=== PATIENT | female | born 1985 | race Caucasian/White ===

== ENCOUNTER 2016-04-05 08:41 | Observation (INO) | payer OTHER ==
[2016-04-01 16:06] VITALS: BMI 27.0
--- NOTE | 2016-04-02 14:33 | HISTORY & PHYSICAL EXAMINATION ---
DATE OF ADMISSION: 04/05/2016 CHIEF COMPLAINT: Low back pain, lower extremity difficulty, paresthesias, fecal and bladder retention. HISTORY OF PRESENT ILLNESS: Cary is a delightful patient. We saw her in the office 31 of March. We scheduled her for urgent surgery, not truly emergency surgery for [facility] because of the bladder incontinence, the size of her disc herniation with cauda equina compression, almost complete block. She is not a candidate for physical therapy. Therapy would be contraindicated to strain her spine. In fact, she has been made worse with home exercises. PAST MEDICAL HISTORY: History of anxiety. PAST SURGICAL HISTORY: Tonsillectomy. ALLERGIES: Negative. CURRENT MEDICATIONS: Ativan, Zoloft, gabapentin, Vicodin. SOCIAL HISTORY: , moderately active. No alcohol, tobacco use. FAMILY HISTORY: Heart disease and she recently has run a half marathon, that was last fall, several months ago. REVIEW OF SYSTEMS: She admits to no fever, sweats, chills, no bowel and bladder issues. Denies chest pain, palpitations, angina. No asthma, wheezing. No sleep issues. She does have change in bowel habits, change in bladder habits with retention. OBJECTIVE: GENERAL: She is 5 feet 7 inches, 175, in significant distress here today. She actually has to get off her feet and lie supine. She is alert and oriented. CARDIAC: Normal S1, S2, no S3. LUNGS: Clear to auscultation. No rales, rhonchi or wheezing. ABDOMEN: Soft, nontender, bowel sounds present. SKIN: Intact. NEUROLOGIC: She has slight decrease in her knee jerk reflexes, slight loss of sensation, no upper motor neuron pathology. Images demonstrate a disc herniation at L3-L4. IMPRESSION: Massive disc herniation L3-L4 with urinary retention. DISPOSITION: Includes surgery coming up on the 05 of April, approximately 10:00 a.m. at [facility]. Lumbar spine discectomy doubtful but possible instrumentation at L3-L4.
[~2016-04-05] VITALS: Ht 170.2 cm; Wt 79.5 kg
[~2016-04-05 08:41] MED LIST: CEFAZOLIN 2000 MG/60 ML D5W 60 ML IV SCH; LACTATED RINGER'S 1000ML 1,000 ML IV SCH; LORA-741 PO; OXYC-57 PO; PRED10TA PO; SERT-234 PO; SERT25TA PO
[2016-04-05 09:17] VITALS: BP 138/79; PULSE 79; TEMP 37.2; O2SAT 95; Ht 170.2 cm; Wt 79.5 kg
[2016-04-05] MEDS ORDERED: PROPOFOL IV EMULSION 10 MG/ML 20 ML VIAL IV ONE ×2 (09:27→12:01)
[2016-04-05] MEDS ORDERED: GLYCOPYRROLATE INJ 0.2 MG/ML VIAL ONE (09:27)
[2016-04-05] MEDS ORDERED: ROCURONIUM BROMIDE 10 MG/ML 5 ML VIAL ONE (09:27)
[2016-04-05] MEDS ORDERED: ONDANSETRON INJ 2 MG/ML 2 ML VIAL ONE (09:27)
[2016-04-05] MEDS ORDERED: MIDAZOLAM HCL 1 MG/ML 2ML VIAL ONE (09:27)
[2016-04-05] MEDS ORDERED: LIDOCAINE HCL 2% 2 ML VIAL (20MG/ML) ONE (09:27)
[2016-04-05] MEDS ORDERED: FENTANYL CITRATE INJ 50 MCG/1 ML 2 ML VIAL ONE (09:27)
[2016-04-05] MEDS ORDERED: NEOSTIGMINE METHYLSULFATE 5 MG/5 ML SYR ONE (09:27)
[2016-04-05] MEDS ORDERED: DEXAMETHASONE SOD INJ 4 MG/ML VIAL ONE (09:27)
[2016-04-05 09:47] LABS: BASO % 0.3 %; BASO ABS # 0.02 K/uL (0-0.2); EOS % 0.5 %; HEMATOCRIT 39.4 % (37-47); IG% 0.2 %; LYMPH % 34.7 %; LYMPH ABS # 2.05 K/uL (1.2-3.4); MEAN CELL VOLUME 92.3 fL (80-100); MEAN CORPUSCULAR HEMOGLOBIN 33.3 pg (25-34); MEAN PLATELET VOLUME 9.3 fL (7.4-10.4); MONO % 7.1 %; NEUT % 57.2 %; PLATELET COUNT 183 K/uL (130-400); RED BLOOD COUNT 4.27 M/uL (4.2-5.4); WHITE BLOOD COUNT 5.91 K/uL (4.8-10.8)
[2016-04-05] MEDS ORDERED: SCOPOLAMINE 1.5 MG TDSY TD ONE (09:54)
[2016-04-05] MEDS ORDERED: LACTATED RINGER'S 1000ML 1,000 ML IV PRN (10:02)
[2016-04-05] MEDS ORDERED: BUPIVACAINE/EPINEPHRINE 0.5% MPF 1:200,000 30 ML VIAL ONE (10:10)
[2016-04-05] MEDS ORDERED: THROMBIN FOR SOLN 20000 UNIT KIT ONE (10:10)
[2016-04-05] MEDS ORDERED: GELATIN SPONGE SZ 100 ONE (10:10)
[2016-04-05] MEDS ORDERED: VANCOMYCIN HCL 1000MG/20ML VIAL ONE (10:11)
[2016-04-05] MEDS ORDERED: BACITRACIN 50000 UNIT VIAL ONE (10:11)
[2016-04-05] MEDS ORDERED: ONDANSETRON INJ 2 MG/ML 2 ML VIAL IV PRN ×2 (10:15→12:45)
[2016-04-05] MEDS ORDERED: DiphenhydrAMINE HCL 50 MG/ML VIAL IV PRN (10:15)
[2016-04-05] MEDS ORDERED: HYDROmorphone INJ 1 MG/ML SYR IV PRN ×2 (10:15→12:45)
[2016-04-05] MEDS ORDERED: METOCLOPRAMIDE HCL INJ 5 MG/ML 2 ML VIAL IV PRN ×2 (10:15→12:45)
--- NOTE | 2016-04-05 10:38 | History & Physical Bridge Note ---
H&P Re-Evaluation Bridge Note: I have examined the patient, reviewed the History & Physical and in the interval since the performance of the History & Physical I have noted the following changes of clinical significance: No changes noted
[2016-04-05 11:14] LABS: COMPLETE YES
[2016-04-05] MEDS ORDERED: EpHEDrine SULFATE 50MG/5ML SYR ONE (11:45)
--- NOTE | 2016-04-05 12:25 | DIAGNOSTIC IMAGING REPORT ---
INTRAOPERATIVE RADIOGRAPH CLINICAL HISTORY: L3-L4 discectomy. Fluoroscopy time: 9 seconds. FINDINGS: A single spot fluoroscopic image of the lumbar spine is presented. A surgical probe projects posteriorly at the level of the superior endplate of L4. IMPRESSION: Intraoperative images from L3 -L4 discectomy as above. Electronically signed by: Garo Beard M.D. 04/05/2016 12:23 PM Dictated Date/Time: 04/05/2016 12:23 PM
--- NOTE | 2016-04-05 12:42 | [facility] Post Operative Brief Note ---
Immediate Operative Summary Operative Date Apr 05, 2016. Pre-Operative Diagnosis Massive disc herniation L3-L4 Post-Operative Diagnosis Massive disc herniation L3-L4 Procedure(s) Performed L3-L4 Discectomy Surgeon Dr. Goncalves Truck Washer Surgeon(s) HOWARD Petit Estimated Blood Loss 40 ml Specimens none per surgeon Complication(s) None Disposition Recovery Room / PACU
[2016-04-05] MEDS ORDERED: PROMETHAZINE HCL INJ 12.5 MG in SODIUM CHLORIDE 0.9% 50ML 50 ML IV PRN (12:45)
[2016-04-05] MEDS ORDERED: LORAZEPAM INJ 1 MG in SYRINGE 0.5 ML IV PRN (12:45)
[2016-04-05] MEDS ORDERED: ACETAMINOPHEN 325 MG TAB PO PRN (12:45)
[2016-04-05] MEDS ORDERED: MAGNESIUM HYDROXIDE SUSP 30 ML UDC PO PRN (12:45)
[2016-04-05] MEDS ORDERED: OXYCODONE/ACETAMINOPHEN 5-325 TAB PO PRN ×2 (12:45)
[2016-04-05] MEDS ORDERED: LORAZEPAM 1 MG TAB PO PRN (12:45)
[2016-04-05] MEDS ORDERED: LORAZEPAM 0.5 MG TAB PO PRN (12:45)
[2016-04-05] MEDS ORDERED: HYDROmorphone INJ 2 MG/ML SYR/VIAL IV PRN (12:45)
[2016-04-05] MEDS: FENTANYL CITRATE INJ 50 MCG/1 ML 2 ML VIAL IV PRN ×2 (13:10→13:15)
--- NOTE | 2016-04-05 13:10 | Anesthesiology Progress Note ---
Anesthesia Post Op Note Date & Time Apr 05, 2016 at 13:09 Vital Signs Pain Intensity: 6 Vital Signs Past 12 Hours Date Time Temp Pulse Resp B/P Pulse Ox O2 Delivery O2 Flow Rate FiO2 04/05/16 12:55 82 16 143/67 100 Mask 10 04/05/16 12:46 37.3 89 14 148/85 100 Mask 10 04/05/16 09:17 37.2 79 20 138/79 95 Room Air Notes Mental Status: alert / awake / arousable, participated in evaluation Pt Amnestic to Procedure: Yes Nausea / Vomiting: adequately controlled Pain: adequately controlled Airway Patency, RR, SpO2: stable & adequate BP & HR: stable & adequate Hydration State: stable & adequate Anesthetic Complications: no major complications apparent Pt doing very well. She says she feels well, that her pain is tolerable and is improved from pre-op.
--- NOTE | 2016-04-05 13:35 | OPERATIVE REPORT ---
DATE OF OPERATION: 04/05/2016 PREOPERATIVE DIAGNOSIS: Disc herniation, lumbar spine. POSTOPERATIVE DIAGNOSIS: Same. PROCEDURES: Include lumbar spine discectomy, foraminotomy, partial facetectomy lumbar spine. SURGEON: Dr. Goncalves. REAL ESTATE LEGAL SECRETARY: Bert Austin PA-C. COMPLICATIONS: Zero. BLOOD LOSS: 40 mL. DESCRIPTION OF PROCEDURE: The patient was taken to the operating room and general intubated anesthetic provided to the patient. Gardner catheter administered and antibiotics administered as well. She was placed prone. She was scrubbed, prepped and draped sterile. We used C-arm guidance to come in at the L3-L4 interspace. We did a laminectomy, foraminotomy first. I got pressure off both nerves, meaning bilateral. I did partial facetectomies. I did not destabilize the spine. We carefully retracted the dura and nerve root over medial direction on both sides. I extracted the massive disc herniation, really from both sides. We cleaned out the interspace. The nerve roots were free of compression. The total discectomy, just taking out the disc material, took at least 10-20 minutes. We also found a few free fragments. I further assessed instability. I felt there was no gross instability. I thought a fusion technology was not indicated. We irrigated, closed over a Hemovac drain and vancomycin powder with #1 Vicryl suture, 2-0 ends and 3-0 nylon on the skin, sterile dressing applied. The patient returned to PACU stable. No apparent complications. I attest to the content of the Intraoperative Record and any orders documented therein. Any exceptio ns are noted below.
[2016-04-05] MEDS ORDERED: SODIUM CHLORIDE 0.9% 1000ML 1,000 ML IV SCH (13:45)
[2016-04-05 16:00] VITALS: BP 130/73; PULSE 63; TEMP 36.8; O2SAT 95
[2016-04-05] MEDS ORDERED: IV FLUIDS COMPLETED PRN (16:15)
[2016-04-05 16:30] VITALS: BP 118/69; PULSE 63; TEMP 36.8; O2SAT 97
[2016-04-05] MEDS: KETOROLAC TROMETHAMINE 30 MG/ML VIAL IV SCH ×2 (16:31→21:26)
[2016-04-05] MEDS: DEXAMETHASONE INJ 10 MG in SYRINGE 0 ML IV SCH (17:25)
[2016-04-05 17:30] VITALS: BP 112/73; PULSE 67; TEMP 36.7; O2SAT 98
[2016-04-05] MEDS: CEFAZOLIN IV 1,000 MG in DEXTROSE 5% 50ML 50 ML IV SCH (18:26)
[2016-04-05 18:28] VITALS: BP 120/67; PULSE 65; TEMP 36.3; O2SAT 100
[2016-04-05] MEDS ORDERED: NURSING VERBAL MED ORDER ONE (21:15)
[2016-04-06 00:45] VITALS: BP 100/64; PULSE 68; TEMP 36.6; O2SAT 98
[2016-04-06] MEDS: CEFAZOLIN IV 1,000 MG in DEXTROSE 5% 50ML 50 ML IV SCH ×2 (03:16→10:57)
[2016-04-06] MEDS: DEXAMETHASONE INJ 10 MG in SYRINGE 0 ML IV SCH ×2 (03:16→09:44)
[2016-04-06] MEDS: KETOROLAC TROMETHAMINE 30 MG/ML VIAL IV SCH ×2 (03:17→09:43)
[2016-04-06 04:09] VITALS: BP 98/59; PULSE 55; TEMP 36.7; O2SAT 94
[2016-04-06] MEDS ORDERED: BISACODYL 5 MG TABEC PO PRN (06:00)
[2016-04-06] MEDS ORDERED: BISACODYL 10 MG SUPP PR PRN (06:00)
--- NOTE | 2016-04-06 07:37 | Discharge Instructions ---
Discharge Instructions Admission Reason for Admission: L4-L5 Lumbar Disc Herniation Discharge Discharge Diagnosis / Problem: disc herniation Discharge Goals Goal(s): Improve function Activity Recommendations Activity Limitations: as noted below Lifting Limitations: until after follow-up appointment Exercise/Sports Limitations: until after follow-up appointment May Resume Sexual Activity: after follow-up appointment Shower/Bathe: keep incision dry Driving or Machine Use: home ,rest, walk ,recover . Instructions / Follow-Up Instructions / Follow-Up MEDICATIONS: Please take your prescriptions as instructed at your pre-op appointment. SPECIAL CARE: The following information is intended to answer some of the common questions and concerns regarding your surgery. Each patient is an individual and receives individual counselling throughout the course of treatment, from diagnosis to surgery all the way through recovery. What follows is not an exhaustive list, but should be a useful guide to some of the common questions and concerns patients have regarding their surgeries. These are not provided to keep you from calling us; rather, they give you something accurate and concrete to reference as you recover from your procedure. If you need us, we are available to you. As always, if you are not sure about something, call us at [phone]. MEDICAL EMERGENCIES: For these conditions, call 911 or go to your local hospital-based Emergency Department - not [facility] or equivalent. * Paralysis * Severe chest pain or difficulty breathing * Swelling or redness of either leg Spine procedures can be rather complex and though complications are rare, they do occur. In such cases, effective advice regarding emergency situations cannot always be addressed over the telephone. You may be referred to the emergency department for more effective management of your problem. Activity Limitations: It is important to give your body time to heal, so please limit your activities : * In general, don't do anything that moves your spine too much. You should avoid contact sports, twisting or heavy lifting while you recover. * 5-10 pounds is all you should attempt to lift. * You should not plan on driving for approximately 3 weeks and you should avoid traveling more than 30-45 minutes at a time. Longer trips should be broken down with walking breaks spaced appropriately. * Physical therapy is not usually required. * Walking and good posture practices will help you recover and regain your function. * Avoid straining or sudden changes in position. * In general, the goal is to take it easy and recover. Don't cause any new problems. Just relax. Showers: * Do not take a bath, use a Jacuzzi or hot tub or otherwise submerge your incision. * It is usually safe to take a shower 4-5 days after your surgery. * Your incision does not require any special creams or ointments. * Simply clean it with soap and water, dry and re-dress with a clean bandage afterwards. Incision: * Keep incision clean, dry and protected until your first follow-up appointment. * Some amount of drainage and redness is normal. Any drainage should be fairly clear and not have a foul odor. * If you feel anything is wrong or you have excessive drainage, please call us. * Your stitches and diamond will be removed 10-14 days after your surgery. At the time of your first post-op visit. * Neck surgeries are typically closed with a suture underneath the skin. The steri-strips over the incision should be maintained until we see you in the office. Bracing: * You may be provided with a back or neck brace to encourage good posture and prevent injury. It will remind you not to do too much as you heal and will alert others to the fact that you have had a surgery. * Back braces may be removed for showers and when you are resting at home. They must be worn when you are walking around for any period of time or for travel. * For neck surgery, you will likely be provided with two cervical collars. The soft collar ([place] or foam rubber) is worn most commonly throughout the day and while sleeping. The plastic collar (provided at the hospital) is for showering/bathing. * Except while eating, collars should remain in place. More specifically, bracing is provided for a purpose and should be worn. * Please obtain your brace or collars prior to your operation and bring them to the hospital with you on the day of surgery. * You should also bring your collars to your post-op appointment with Dr. Goncalves. You should always take good care of your body and practice healthy habits, especially following surgery. You should: * Follow your doctor's treatment plan * Sit and stand properly with good posture (ears over shoulders, shoulders over hips) Don't slouch * Learn to lift correctly * Exercise regularly (low-impact aerobic exercise is especially good, but check with your doctor first) * Generally, be up and walking for 5-10 minutes at a time at least 3-4 times per day from the day you get home * Increasing walking to tolerance until you can walk for 20-30 minutes at a time * Attain and maintain a healthy body weight * Eat healthy foods ( a well-balanced, low-fat diet rich in fruits and vegetables) and get enough calcium * Avoid excessive use of alcohol When to call our office - If you notice any of the following: * Increased pain not relieve by pain medicine * Fevers greater then 100 degrees F, chills or flu symptoms * Increased redness around incision * Drainage from the incision that is not clear * Any foul smelling drainage * Swelling or fluid collection beneath the skin Miscellaneous: * In the hospital, you may be given a walker or cane for support while walking. These are temporary needs and are intended to prevent injuries due to falls. You may discontinue them when you feel strong and steady enough on your feet. * Sleep in a comfortable position. We find that many patients find a lounge chair or recliner with several pillows to be beneficial in the early post-operative period. * The support stockings should be used for 7-10 days and may be discontinued when you are back to walking more and conducting usual household activities. No problem is insignificant. We are here to help you and get you well. Contact us at [phone]. Definitions: Foraminotomy: If part of the disc or a bone spur (osteophyte) is pressing on a nerve as it leaves the vertebra (through an exit called the foramen), a foraminotomy may be done. Otomy means "to make an opening." A foraminotomy is making the opening of the foramen larger, so the nerve can exit without being compressed. Laminotomy: Similar to the foraminotomy, a laminotomy makes a larger opening, this time in your bony plate protecting your spinal canal and spinal cord (the lamina). The lamina may be pressing on your nerve, so the surgeon may make more room for the nerves using a laminotomy. Laminectomy: Sometimes, a laminotomy is not sufficient. The surgeon may need to remove all or part of the lamina. This procedure is called a laminectomy. This can often be done at many levels without any harmful effects. Current Hospital Diet Patient's current hospital diet: Regular Diet Discharge Diet Recommended Diet: Regular Diet Fluid Restriction: None Procedures Procedures Performed: L3-L4 Discectomy Pending Studies Studies pending at discharge: no Medical Emergencies . Who to Call and When: Medical Emergencies: If at any time you feel your situation is an emergency, please call 911 immediately. . Non-Emergent Contact Non-Emergency issues call your: Surgeon Call Non-Emergent contact if: you have any medication questions . "Provider Documentation" section prepared by Tip Goncalves. VTE Core Measure Inpt VTE Proph given/why not?: Treatment not indicated
[2016-04-06 08:03] VITALS: BP 99/61; PULSE 56; TEMP 36.8; O2SAT 98
[2016-04-06] MEDS ORDERED: POLYETHYLENE (MIRALAX) 17 GM PACK PO SCH (09:00)
[2016-04-06] MEDS ORDERED: SERTRALINE HCL 100 MG TAB PO SCH (09:00)
[2016-04-06] MEDS ORDERED: SERTRALINE HCL 50 MG TAB PO SCH (09:00)
[2016-04-06 10:57] VITALS: BP 99/61; PULSE 56; TEMP 36.8; O2SAT 98
[2016-04-06 11:42] VITALS: BP 106/64; PULSE 67; TEMP 36.5; O2SAT 96
--- NOTE | 2016-04-09 11:41 | DISCHARGE SUMMARY ---
SUBJECTIVE: Moderate complaints of pain but no chest pain or shortness of breath. OBJECTIVE: Vital signs stable. Neurologically intact. ASSESSMENT: Status post discectomy lumbar spine. DISPOSITION: Dressing changed today. She will be discharged home on the . Instructions, precautions, education. Follow up in the office in 12 days.
== END 2016-04-06 13:48 | disposition home or self-care (01) ==
LOC: ENRESERVDT → ENRESERVTM → C.ACU 08:41 → C.3E 12:46
PROVIDERS: ADMIT Orthopaedic Surgery Orthopaedic Surgery of the Spine; ATTEND Orthopaedic Surgery Orthopaedic Surgery of the Spine
DX: M51.26 Other intervertebral disc displacement, lumbar region (principal); R33.9 Retention of urine, unspecified; Z82.49 Family history of ischemic heart disease and other diseases of the circulatory system

== ENCOUNTER → 2017-09-09 | Outpatient (CLI) | payer BC, OTHER ==
[~2017-09-09] MED LIST changes: -CEFAZOLIN 2000 MG/60 ML D5W 60 ML IV SCH; -LACTATED RINGER'S 1000ML 1,000 ML IV SCH
== END | disposition home or self-care (01) ==
LOC: C.LAB1850 15:14
PROVIDERS: ATTEND Obstetrics & Gynecology
DX: Z34.02 Encounter for supervision of normal first pregnancy, second trimester (principal)

== ENCOUNTER 2018-02-12 01:10 | Inpatient (IN) ==
[2018-02-12] MEDS ORDERED: LACTATED RINGER'S 1,000 ML IV PRN ×2 (01:40→01:44)
[2018-02-12] MEDS ORDERED: OXYTOCIN 30 UNITS/500 ML BAG IV PRN ×2 (01:40→01:44)
--- NOTE | 2018-02-12 01:41 | History & Physical Report ---
Date of Service February 12, 2018 Assessment & Plan (1) PROM (premature rupture of membranes): PROM with onset of cramps that have not significantly changed her cervix yet. Cervix is ripe and will plan to start pitocin as toco is active Q2-5 min. GBS neg. Rh pos. Patient noted to have h/o lumbar diskectomy. No hardware or fusion. She states Dr. Aparicio did call anesthesia from the OB office, and they felt that this patient receiving an epidural would be fine as there's no hardware implanted, however patient did not choose to get the recommended formal anesthesia consult because she is planning not to request epidural. Discussed available options including IV stadol in first half of labor, but need to avoid IV sedation in active / later labor to avoid respiratory suppression. Positioning and breathing techniques are her plan for later labor at this time. History of Present Illness Chief Complaint: 32yo at 39 1/7 with c/o LOF at 2300 followed by onset of cramps. +FM, no VB. Fluid is clear. c/b umbilical cord varix with reassuring testing. Primary Care Provider: Paulette Arroyo PA-C Allergies Allergy/AdvReac Type Severity Reaction Status Date / Time No Known Drug Allergies Allergy Mild . Verified 04/05/16 09:13 Home Medications Home Medications Medication Instructions Recorded Confirmed Type LORAZEPAM (ATIVAN) 0.5 mg PO Q6H PRN #0 tab 04/01/16 History OXYCODONE/ACETAMINOPHEN 5MG/325MG 1 - 2 tabs PO Q4H PRN #0 tab 04/01/16 History (PERCOCET 5MG/325MG) Prednisone Tab (PREDNISONE) 10 mg PO UD #0 tab 04/01/16 History Sertraline (Zoloft) 25 mg PO QAM #0 tab 04/01/16 History Sertraline (Zoloft) 150 mg PO QAM #0 tab 04/01/16 History Physical Exam 2 Physical Exam: Gen: NAD Lungs: no resp distress Abd: Gravid, NT Cvx: 2/50/-2/soft/ant, EFW 7.5lb LOF clear +nitrazine
[2018-02-12 02:14] LABS: Hemoglobin 11.1 g/dL (12.0-16.0); Mean Corpuscular Volume 93.8 fL (80-100); Mean Platelet Volume 10.8 fL (7.4-10.4); Platelet Count 149 K/uL (130-400); RDW Coefficient of Variation 12.5 % (11.5-14.5); RDW Standard Deviation 42.3 fL (36.4-46.3); Red Blood Count 3.52 M/uL (4.2-5.4)
[2018-02-12 02:23] LABS: Mean Corpuscular Hgb Conc 33.6 g/dL (32-36)
[2018-02-12] MEDS ORDERED: INFLUENZA ADMINISTRATION CHARGE ONE (03:30)
[2018-02-12] MEDS ORDERED: INFLUENZA VIRUS QUAD VACCINE 0.5 ML SYR IM ONE (03:30)
[2018-02-12] MEDS: LACTATED RINGER'S 1,000 ML IV SCH ×4 (03:45→22:03)
[2018-02-12] MEDS ORDERED: CALCIUM CARBONATE 500 MG CHEWABLE TAB PO PRN (04:27)
--- NOTE | 2018-02-12 07:13 | Labor Progress Brief Note ---
Date of Service February 12, 2018 Subjective Tolerating ctx well with pit @ 5. Assessment & Plan (1) PROM (premature rupture of membranes): IOL for PROM. Cont pitocin. Epidural on request. PROM onset of labor timing: onset of labor within 24 hours of rupture PROM gestational age: full term Qualified Code(s): O42.02 - Full-term premature rupture of membranes, onset of labor within 24 hours of rupture Physical Exam 2 Vital Signs (Past 24 Hours): Last Vital Signs Temp 36.9 C 02/12/18 06:00 Pulse 74 02/12/18 07:06 Resp 20 02/12/18 03:40 BP 113/55 L 02/12/18 07:06 Physical Exam: Cvx 3/75/-3 LOF clear continues FHT Cat 1 [place] poorly traced but has been Q2-3min.
[2018-02-12] MEDS: SERTRALINE HCL 50 MG TABLET PO SCH (09:11)
[2018-02-12] MEDS: SERTRALINE HCL 100 MG TABLET PO SCH (09:11)
--- NOTE | 2018-02-12 11:31 | Labor Progress Brief Note ---
Date of Service February 12, 2018 Subjective Comfortable with epidural. Assessment & Plan (1) PROM (premature rupture of membranes): Continue increasing pitocin, currently at 13 and ctx pattern not yet ideal , with no new cervical progress. Once at Q2min reliably, if still no cervical change, will need to use IUPC. PROM onset of labor timing: onset of labor within 24 hours of rupture PROM gestational age: full term Qualified Code(s): O42.02 - Full-term premature rupture of membranes, onset of labor within 24 hours of rupture Physical Exam 2 Vital Signs (Past 24 Hours): Last Vital Signs Temp 37.0 C 02/12/18 11:06 Pulse 67 02/12/18 11:06 Resp 20 02/12/18 11:06 BP 121/68 02/12/18 11:06 Physical Exam: Cervix unchanged, still 3cm. FHT Cat 1. [place] Q3-6min.
[2018-02-12] MEDS ORDERED: BUTORPHANOL TARTRATE 1 MG/ML VIAL IV ONE (13:01)
[2018-02-12] MEDS ORDERED: BUPIVACAINE 0.25% 30 ML VIAL ONE (17:27)
[2018-02-12] MEDS ORDERED: fentaNYL citrate 100 MCG/2 ML VIAL ONE (17:28)
[2018-02-12] MEDS ORDERED: fentaNYL 2MCG/ML ROPIV 1.25MG/ML 100 ML BAG EPI ONE (17:28)
[2018-02-12] MEDS ORDERED: ePHEDrine sulfate 50 MG/ML AMP ONE (17:28)
--- NOTE | 2018-02-12 17:50 | Anesthesiology Consultation ---
Date of Service February 12, 2018 Assessment & Plan (1) Encounter for pre-operative examination: Chart Review Chart Review: Acceptable Risk for Labor Epidural History Height/Weight Height: 5 ft 7 in Weight: 104.326 kg Allergies Allergy/AdvReac Type Severity Reaction Status Date / Time No Known Drug Allergies Allergy Mild . Verified 04/05/16 09:13 Medications Home Medications Medication Instructions Recorded Confirmed Last Taken Vitamin 02/12/18 Unknown Zoloft 25 mg PO DAILY 02/12/18 02/12/18 02/11/18 08:00 Active Medications Generic Name Dose Route Start Last Admin Trade Name Freq PRN Reason Stop Dose Admin Calcium Carbonate 500 mg 02/12/18 04:27 02/12/18 05:11 Tums PO 03/14/18 04:26 500 mg Q4 PRN Administration Indigestion Lactated Ringer's 1,000 mls @ 999 mls/hr 02/12/18 01:40 02/12/18 18:51 Lr IV 03/14/18 01:39 125 mls/hr .Q1H1M PRN Titration (Pre-Anesthesia) Lactated Ringer's 1,000 mls @ 125 mls/hr 02/12/18 01:45 02/12/18 18:30 Lr IV 02/14/18 01:44 Infused .Q8H WENDY Infusion Oxytocin 30 units in 500 mls @ 20 mls/hr 02/12/18 01:44 02/12/18 15:11 Pitocin IV 02/14/18 01:43 1.2 units/hr .Q24H PRN 20 mls/hr Labor Induction/Augmentation Titration Protocol 1.2 UNITS/HR Sertraline HCl 100 mg 02/12/18 09:00 02/12/18 09:11 Zoloft PO 03/14/18 08:59 100 mg QAM WENDY Administration Sertraline HCl 75 mg 02/12/18 09:00 02/12/18 09:11 Zoloft PO 03/14/18 08:59 75 mg QAM WENDY Administration Past Medical History Medical History History of wisdom tooth extraction Past Surgical History Surgical History Hx of tonsillectomy Previous back surgery Social History Smoking Status: Never smoker Do You Dip or Chew Tobacco: No Hx Alcohol Use: No Hx Substance Use: No substance use type: does not use Physical Exam Vital Signs Last Vital Signs Temp 36.9 C 02/12/18 15:00 Pulse 77 02/12/18 16:02 Resp 22 02/12/18 16:02 BP 127/74 02/12/18 16:02 Testing Laboratory Results 02/12/18 01:51
[2018-02-12] MEDS ORDERED: PHENYLEPHRINE 100MCG/ML 5ML SYR ONE (19:02)
--- NOTE | 2018-02-13 00:51 | Labor Progress Brief Note ---
Date of Service February 13, 2018 Subjective Comfortable with epidural. Assessment & Plan (1) PROM (premature rupture of membranes): Continue increasing pitocin. Had to stop pitocin earlier following epidural, with maternal hypotension managed using significant ephedrine doses, which resulted in a tachycardia and therefore discontinuation of pitocin. Once FHT resumed Cat 1 status, pitocin was able to be restarted and dose has been climbing steadily per protocol. It is currently at 13 and slow cervical progress has now resumed. I note that previously pitocin was at 20 when cervical progress was occurring. Fluid remains clear and patient is afebrile. PROM onset of labor timing: onset of labor within 24 hours of rupture PROM gestational age: full term Qualified Code(s): O42.02 - Full-term premature rupture of membranes, onset of labor within 24 hours of rupture Physical Exam 2 Vital Signs (Past 24 Hours): Last Vital Signs Temp 37.0 C 02/12/18 23:00 Pulse 96 H 02/13/18 00:42 Resp 18 02/13/18 00:30 BP 109/56 L 02/13/18 00:42 Pulse Ox 96 02/13/18 00:40 Physical Exam: 6/90/0 LOF clear Afebrile FHT 160 mod yuniel +acc -dec [place] Q 3-4min Pit @ 13
[2018-02-13] MEDS ORDERED: DiphenhydrAMINE HCL 50 MG/ML VIAL IV PRN (01:39)
[2018-02-13] MEDS ORDERED: NALOXONE HCL 1 MG in SODIUM CHLORIDE 0.9% 1000ML 1,000 ML IV PRN (01:39)
[2018-02-13] MEDS ORDERED: ONDANSETRON INJ 2 MG/ML 2 ML VIAL IV PRN (01:39)
[2018-02-13] MEDS ORDERED: NALBUPHINE HCL INJ 10 MG/ML AMP IV PRN (01:39)
[2018-02-13] MEDS ORDERED: NALOXONE HCL 0.4 MG/1 ML VIAL/CARP IV PRN (01:39)
[2018-02-13] MEDS ORDERED: ePHEDrine sulfate 50 MG/ML AMP IV PRN (01:39)
[2018-02-13] MEDS ORDERED: LACTATED RINGER'S 1,000 ML IV PRN (01:39)
[2018-02-13] MEDS: fentaNYL 2MCG/ML ROPIV 1.25MG/ML 100 ML BAG EPI PRN ×2 (01:45→02:09)
[2018-02-13] MEDS ORDERED: Nursing to Pharmacy Communication ONE (01:58)
[2018-02-13] MEDS ORDERED: fentaNYL 2MCG/ML ROPIV 1.25MG/ML 100 ML BAG EPI ONE (02:08)
[2018-02-13] MEDS: LACTATED RINGER'S 1,000 ML IV SCH (03:31)
[2018-02-13] MEDS ORDERED: HYDROCORTISONE ACETATE 25 MG SUPP PR PRN (06:44)
[2018-02-13] MEDS ORDERED: OXYCODONE/ACETAMINOPHEN 5mg/325mg TAB PO PRN (06:44)
[2018-02-13] MEDS ORDERED: BENZOCAINE 20% AER SPR 82.5 GM CAN EXT PRN (06:44)
[2018-02-13] MEDS ORDERED: SUPERCREAM 0.870% 15 GM JAR EXT PRN (06:44)
[2018-02-13] MEDS ORDERED: ACETAMINOPHEN 325 MG TAB PO PRN (06:44)
[2018-02-13] MEDS ORDERED: DIPHTHERIA/TETANUS/PERTUSSIS 0.5 ML SYR/VIAL IM ONE (06:44)
[2018-02-13] MEDS ORDERED: BISACODYL 10 MG SUPP PR PRN (06:44)
[2018-02-13] MEDS ORDERED: OXYTOCIN 30 UNITS/500 ML BAG IV PRN (06:44)
--- NOTE | 2018-02-13 06:48 | Procedure Note ---
Vaginal Delivery Summary Date of Service February 13, 2018 Supervising Physician Co-Signing Physician Notes Patient pushed to deliver a viable infant in OA position. No nuchal cord. A prolonged phase was observed, so the patient was placed in McRobert's position. The shoulders delivered with one maternal push. The infant was placed on the maternal abdomen and cord was doubly clamped and cut by FOB. The second degree perineal laceration was repaired with vicryl in the usual manner including a crown stitch to rebuild the perineal body. The placenta then delivered spontaneously and was intact with a 3VC. The fundus was firm and lochia was minimal after delivery.
--- NOTE | 2018-02-13 07:16 | Anesthesia Procedure Note ---
Date of Service February 13, 2018 Anesthesia Post Epidural Note Vital Signs Vital Signs: Temp Pulse Resp BP Pulse Ox 02/13/18 06:55 103 H 118/57 L 02/13/18 06:50 37.2 C 18 02/13/18 06:40 108 H 114/62 97 02/13/18 06:35 108 H 98 02/13/18 06:30 113 H 96 02/13/18 06:26 131 H 139/65 02/13/18 06:25 138 H 97 02/13/18 06:20 109 H 97 02/13/18 06:15 113 H 97 02/13/18 06:10 98 H 97 02/13/18 06:05 121 H 99 02/13/18 06:00 105 H 20 97 02/13/18 05:55 100 H 111/65 97 02/13/18 05:50 100 H 98 02/13/18 05:45 101 H 97 02/13/18 05:41 97 H 103/63 02/13/18 05:40 95 H 97 02/13/18 05:35 101 H 97 02/13/18 05:32 37.2 C 20 02/13/18 05:30 93 H 98 02/13/18 05:26 89 119/65 02/13/18 05:25 88 97 02/13/18 05:20 100 H 97 02/13/18 05:15 90 96 02/13/18 05:10 86 112/56 L 97 02/13/18 05:05 96 H 99 02/13/18 05:00 107 H 97 02/13/18 04:57 100 H 123/61 02/13/18 04:55 98 H 98 02/13/18 04:50 98 H 96 02/13/18 04:45 97 H 96 02/13/18 04:41 92 H 123/61 02/13/18 04:40 96 H 96 02/13/18 04:35 100 H 96 02/13/18 04:30 92 H 97 02/13/18 04:25 91 H 117/66 97 02/13/18 04:20 93 H 97 02/13/18 04:15 94 H 98 02/13/18 04:11 93 H 118/64 02/13/18 04:10 92 H 98 02/13/18 04:05 37.2 C 101 H 18 99 02/13/18 04:00 109 H 99 02/13/18 03:55 100 H 117/56 L 97 02/13/18 03:50 97 H 97 02/13/18 03:45 100 H 96 02/13/18 03:41 95 H 120/57 L 02/13/18 03:40 97 H 97 02/13/18 03:35 106 H 96 02/13/18 03:30 115 H 18 97 02/13/18 03:25 94 H 110/59 L 95 02/13/18 03:20 93 H 95 02/13/18 03:15 95 H 95 02/13/18 03:12 95 H 105/58 L 02/13/18 03:10 92 H 95 02/13/18 03:05 96 H 95 02/13/18 03:00 92 H 96 02/13/18 02:57 95 H 106/57 L 02/13/18 02:55 96 H 96 02/13/18 02:50 96 H 96 02/13/18 02:45 96 H 96 02/13/18 02:40 95 H 110/55 L 96 02/13/18 02:35 104 H 97 02/13/18 02:30 36.8 C 119 H 18 97 02/13/18 02:27 100 H 114/57 L 02/13/18 02:25 103 H 95 02/13/18 02:20 132 H 96 02/13/18 02:15 104 H 96 02/13/18 02:12 101 H 106/54 L 02/13/18 02:10 104 H 96 02/13/18 02:05 101 H 96 02/13/18 02:00 104 H 18 98 02/13/18 01:55 109 H 112/59 L 97 02/13/18 01:50 102 H 98 02/13/18 01:45 92 H 97 02/13/18 01:41 100 H 138/59 L 02/13/18 01:40 95 H 97 02/13/18 01:35 105 H 97 02/13/18 01:30 102 H 98 02/13/18 01:25 112 H 97 02/13/18 01:20 109 H 97 02/13/18 01:15 101 H 98 02/13/18 01:12 114 H 119/62 02/13/18 01:10 125 H 98 02/13/18 01:05 104 H 96 02/13/18 01:00 37.2 C 100 H 18 97 02/13/18 00:55 100 H 114/59 L 96 02/13/18 00:50 104 H 96 02/13/18 00:45 106 H 96 02/13/18 00:42 96 H 109/56 L 02/13/18 00:40 96 H 96 02/13/18 00:35 101 H 97 02/13/18 00:30 107 H 18 97 02/13/18 00:27 111 H 109/58 L 02/13/18 00:25 93 H 96 02/13/18 00:20 96 H 96 02/13/18 00:15 94 H 96 02/13/18 00:11 94 H 107/59 L 02/13/18 00:10 96 H 96 02/13/18 00:05 99 H 96 02/13/18 00:00 102 H 96 02/12/18 23:56 89 111/59 L 02/12/18 23:55 96 H 97 02/12/18 23:50 92 H 97 02/12/18 23:45 94 H 97 02/12/18 23:41 18 02/12/18 23:40 96 H 99/62 L 98 02/12/18 23:35 117 H 98 02/12/18 23:30 112 H 98 02/12/18 23:25 106 H 98/59 L 97 02/12/18 23:20 95 H 97 02/12/18 23:15 125 H 99 02/12/18 23:12 100 H 115/60 02/12/18 23:10 97 H 97 02/12/18 23:05 99 H 96 02/12/18 23:00 37.0 C 95 H 18 97 02/12/18 22:56 103 H 122/70 02/12/18 22:55 107 H 96 02/12/18 22:50 105 H 96 02/12/18 22:45 109 H 96 02/12/18 22:40 106 H 99/55 L 96 02/12/18 22:35 105 H 95 02/12/18 22:30 105 H 18 95 02/12/18 22:26 99 H 96/50 L 02/12/18 22:25 97 H 95 02/12/18 22:20 98 H 95 02/12/18 22:15 103 H 95 02/12/18 22:10 101 H 96/51 L 95 02/12/18 22:05 99 H 96 02/12/18 22:00 101 H 18 95 02/12/18 21:56 97 H 93/55 L 02/12/18 21:55 99 H 95 02/12/18 21:50 100 H 95 02/12/18 21:45 98 H 96 02/12/18 21:41 96 H 93/54 L 02/12/18 21:40 100 H 96 02/12/18 21:35 99 H 98 02/12/18 21:30 105 H 18 97 02/12/18 21:26 97 H 107/58 L 02/12/18 21:25 99 H 98 02/12/18 21:20 110 H 97 02/12/18 21:15 97 H 98 02/12/18 21:11 98 H 118/65 02/12/18 21:10 99 H 98 02/12/18 21:05 36.6 C 95 H 18 97 02/12/18 21:00 108 H 98 02/12/18 20:55 105 H 115/74 97 02/12/18 20:50 101 H 98 02/12/18 20:45 106 H 98 02/12/18 20:41 109 H 136/60 02/12/18 20:40 108 H 98 02/12/18 20:35 106 H 99 02/12/18 20:30 120 H 98 02/12/18 20:26 93 H 104/55 L 02/12/18 20:25 94 H 100 02/12/18 20:20 97 H 99 02/12/18 20:15 96 H 18 98 02/12/18 20:10 92 H 102/53 L 98 02/12/18 20:05 114 H 99 02/12/18 20:00 98 H 18 97 02/12/18 19:56 109 H 134/57 L 02/12/18 19:55 96 H 98 02/12/18 19:50 94 H 98 02/12/18 19:45 100 H 97 02/12/18 19:41 96 H 124/59 L 02/12/18 19:40 99 H 97 02/12/18 19:35 86 18 96 02/12/18 19:30 98 H 97 02/12/18 19:25 91 H 97 02/12/18 19:20 107 H 18 98 02/12/18 19:19 93 H 124/74 02/12/18 19:15 108 H 98 02/12/18 19:12 102 H 94/58 L 02/12/18 19:10 112 H 107/55 L 97 02/12/18 19:08 115 H 115/58 L 02/12/18 19:06 111 H 113/60 02/12/18 19:05 36.9 C 118 H 18 121/69 98 02/12/18 19:02 70 131/73 02/12/18 19:00 128 H 18 96 02/12/18 18:59 113 H 90/57 L 02/12/18 18:58 100 H 84/52 L 02/12/18 18:57 82 80/45 L 02/12/18 18:56 83 18 80/41 L 02/12/18 18:55 88 98 02/12/18 18:54 80 94/50 L 02/12/18 18:52 88 89/47 L 02/12/18 18:50 93 H 18 95/50 L 97 02/12/18 18:48 92 H 96/53 L 02/12/18 18:47 89 102/58 L 02/12/18 18:45 105 H 99 02/12/18 18:40 96 H 98 02/12/18 18:35 79 98 02/12/18 18:33 37.0 C 02/12/18 18:30 75 99 02/12/18 18:25 89 97 02/12/18 18:20 75 98 02/12/18 18:15 76 99 02/12/18 18:10 75 97 02/12/18 18:05 82 91 02/12/18 18:00 80 97 02/12/18 17:55 85 99 02/12/18 17:50 83 99 02/12/18 16:02 77 22 127/74 02/12/18 15:00 36.9 C 16 02/12/18 14:59 78 105/55 L 02/12/18 14:22 69 125/76 02/12/18 13:15 60 132/80 02/12/18 13:14 37.2 C 20 02/12/18 11:06 37.0 C 67 20 121/68 02/12/18 10:00 37.1 C 20 02/12/18 09:55 60 119/75 02/12/18 09:10 66 16 113/64 02/12/18 07:57 37.0 C 66 16 131/60 Pain Intensity Bilateral Abdomen: Pain Intensity: 0 Notes Mental Status: alert / awake / arousable Patient Amnestic to Procedure: Yes Nausea / Vomiting: adequately controlled Pain: adequately controlled Airway Patency, RR, SpO2: stable & adequate BP & HR: stable & adequate Hydration State: stable & adequate Neuraxial Anesthesia: was administered and sensory block is resolving Anesthetic Complications: no major complications apparent Epidural: Removed without complications and With tip intact
[2018-02-13] MEDS: PRENATAL VITAMIN 1 TAB PO SCH (10:24)
[2018-02-13] MEDS: SERTRALINE HCL 50 MG TABLET PO SCH (10:28)
[2018-02-13] MEDS: SERTRALINE HCL 100 MG TABLET PO SCH (10:28)
[2018-02-13] MEDS: DOCUSATE SODIUM 100 MG CAP PO SCH ×2 (10:40→20:50)
[2018-02-13] MEDS: IBUPROFEN 600 MG TAB PO PRN (17:18)
[2018-02-14] MEDS: IBUPROFEN 600 MG TAB PO PRN ×2 (04:27→23:27)
--- NOTE | 2018-02-14 07:26 | Obstetrical Progress Note ---
Date of Service <Tuan Rosario DO - Last Filed: 02/14/18 07:26> February 14, 2018 Assessment & Plan <Tuan Rosario - Last Filed: 02/14/18 07:26> (1) Spontaneous vaginal delivery: 32 y/o, , GBS-, Rh+, delivered at 39.1 weeks continue routine post- care all questions and concerns addressed PPD #1 (2) 39 weeks gestation of : Day #:: 1 Subjective <Tuan Rosario - Last Filed: 02/14/18 07:26> Ambulation: ambulating normally Voiding: no voiding problems Passing Gas:: Yes Diet Tolerance:: regular diet Lochia:: Small Feeding Type:: breast feeding Current Pain Level(1-10): 0 Doing well this morning, no acute concerns or complaints. No fever, chills, chest pain, shortness of breath, nausea, vomiting. Physical Exam <Tuan Rosario - Last Filed: 02/14/18 07:26> Vital Signs (Past 24 Hours) Last Vital Signs Temp 36.9 C 02/14/18 04:50 Pulse 76 02/14/18 04:50 Resp 18 02/14/18 04:50 BP 113/68 02/14/18 04:50 Pulse Ox 99 02/14/18 00:05 Constitutional WD/WN, vitals as above cooperative Respiratory normal respiratory effort, lungs clear to auscultation Cardiovascular Rate/Rhythm: regular rate and regular rhythm Heart Sounds: no murmur Extremities: + pedal edema Gastrointestinal (Abdomen) Percussion/Palpation: abdomen nontender fundus firm nontender, 4cm below umbilicus Skin no rashes, warm and dry Neurologic moves all extremities and awake Psychiatric A+Ox3, euthymic affect Results & Data <Tuan Rosario - Last Filed: 02/14/18 07:26> Medications Administered Benzocaine (Dermoplast Pain Relieving [place]) 1 appln EXT PRN PRN PRN Reason: Perineal Discomfort Stop: 03/15/18 06:43 Last Admin: 02/13/18 10:40 Dose: 82.5 appln Calcium Carbonate (Tums) 500 mg PO Q4 PRN PRN Reason: Indigestion Stop: 03/14/18 04:26 Last Admin: 02/12/18 05:11 Dose: 500 mg Docusate Sodium (Colace) 100 mg PO BID WENDY Stop: 03/15/18 08:59 Last Admin: 02/13/18 20:50 Dose: 100 mg Admin: 02/13/18 10:40 Dose: 100 mg Lactated Ringer's (Lr) 1,000 mls @ 999 mls/hr IV .Q1H1M PRN PRN Reason: (Pre-Anesthesia) Stop: 03/14/18 01:39 Last Infusion: 02/12/18 22:32 Dose: 0 mls/hr Infusion: 02/12/18 18:51 Dose: 125 mls/hr Admin: 02/12/18 18:30 Dose: 999 mls/hr Ibuprofen (Motrin) 600 mg PO Q4H PRN PRN Reason: Pain/POWELL/Cramping/Fever Stop: 03/15/18 06:43 Last Admin: 02/14/18 04:27 Dose: 600 mg Admin: 02/13/18 17:18 Dose: 600 mg Prenat Multivit/Chamita/Iron/Folic Ac ( Vitamin) 1 tab PO QAM [facility] Stop: 03/15/18 08:59 Last Admin: 02/13/18 10:24 Dose: 1 tab Sertraline HCl (Zoloft) 100 mg PO QAM [facility] Stop: 03/14/18 08:59 Last Admin: 02/13/18 10:28 Dose: 100 mg Admin: 02/12/18 09:11 Dose: 100 mg Sertraline HCl (Zoloft) 75 mg PO QAM [facility] Stop: 03/14/18 08:59 Last Admin: 02/13/18 10:28 Dose: 75 mg Admin: 02/12/18 09:11 Dose: 75 mg <Tip Shen MD, FACOG - Last Filed: 02/14/18 07:52> Co-Signing Physician Notes Resident Physician Supervision Note: I interviewed and examined the patient. Discussed with Dr. Rosario and agree with findings and plan as documented in the note. Any exceptions or clarifications are listed here: [None] Documented By: Tip Shen MD, FACOG
[2018-02-14 08:07] LABS: Hematocrit (blood only) 27.6 % (37-47); Mean Corpuscular Hgb Conc 32.6 g/dL (32-36); Mean Corpuscular Volume 96.5 fL (80-100); Mean Platelet Volume 10.4 fL (7.4-10.4); Platelet Count 119 K/uL (130-400); RDW Standard Deviation 45.2 fL (36.4-46.3); Red Blood Count 2.86 M/uL (4.2-5.4); White Blood Count 7.85 K/uL (4.8-10.8)
[2018-02-14] MEDS: DOCUSATE SODIUM 100 MG CAP PO SCH ×2 (09:01→20:48)
[2018-02-14] MEDS: PRENATAL VITAMIN 1 TAB PO SCH (09:01)
[2018-02-14] MEDS: SERTRALINE HCL 100 MG TABLET PO SCH (09:01)
[2018-02-14] MEDS: SERTRALINE HCL 50 MG TABLET PO SCH (09:02)
[2018-02-14] MEDS ORDERED: BISACODYL 5 MG TABEC PO SCH (20:00)
[2018-02-15 07:19] LABS: Hemoglobin 8.8 g/dL (12.0-16.0)
--- NOTE | 2018-02-15 07:52 | Obstetrical Progress Note ---
Date of Service February 15, 2018 Assessment & Plan (1) Spontaneous vaginal delivery: 32 y/o, , GBS-, Rh+, delivered at 39.1 weeks continue routine post- care, until discharge home today Reviewed discharge instructions at bedside PPD #2 (2) 39 weeks gestation of : Subjective Ambulation: ambulating normally Voiding: no voiding problems Passing Gas:: Yes Diet Tolerance:: regular diet Lochia:: Small Feeding Type:: breast feeding Current Pain Level(1-10): 0 [place] is doing well this morning, no acute concerns. No fevers, chills, shortness of breath, chest pain, nausea, vomiting. Physical Exam Vital Signs (Past 24 Hours) Last Vital Signs Temp 36.8 C 02/15/18 07:41 Pulse 65 02/15/18 07:41 Resp 20 02/15/18 07:41 BP 107/73 02/15/18 07:41 Pulse Ox 96 02/14/18 16:30 Constitutional WD/WN, vitals as above cooperative Respiratory normal respiratory effort, lungs clear to auscultation Cardiovascular Rate/Rhythm: regular rate and regular rhythm Heart Sounds: no murmur Extremities: + pedal edema Gastrointestinal (Abdomen) Percussion/Palpation: abdomen nontender fundus is firm and non-tender Skin no rashes, warm and dry Neurologic moves all extremities and awake Psychiatric A+Ox3, euthymic affect Results & Data Laboratory Results Laboratory Results - last 24 hr 02/14/18 02/15/18 07:51 07:10 WBC 7.85 RBC 2.86 L Hgb 9.0 L 8.8 L Hct 27.6 L 27.0 L MCV 96.5 MCH 31.5 MCHC 32.6 RDW Std Deviation 45.2 RDW Coeff of Linh 13.0 Plt Count 119 L MPV 10.4 Medications Administered Benzocaine (Dermoplast Pain Relieving [place]) 1 appln EXT PRN PRN PRN Reason: Perineal Discomfort Stop: 03/15/18 06:43 Last Admin: 02/13/18 10:40 Dose: 82.5 appln Calcium Carbonate (Tums) 500 mg PO Q4 PRN PRN Reason: Indigestion Stop: 03/14/18 04:26 Last Admin: 02/12/18 05:11 Dose: 500 mg Docusate Sodium (Colace) 100 mg PO BID [facility] Stop: 03/15/18 08:59 Last Admin: 02/14/18 20:48 Dose: 100 mg Admin: 02/14/18 09:01 Dose: 100 mg Admin: 02/13/18 20:50 Dose: 100 mg Admin: 02/13/18 10:40 Dose: 100 mg Lactated Ringer's (Lr) 1,000 mls @ 999 mls/hr IV .Q1H1M PRN PRN Reason: (Pre-Anesthesia) Stop: 03/14/18 01:39 Last Infusion: 02/12/18 22:32 Dose: 0 mls/hr Infusion: 02/12/18 18:51 Dose: 125 mls/hr Admin: 02/12/18 18:30 Dose: 999 mls/hr Ibuprofen (Motrin) 600 mg PO Q4H PRN PRN Reason: Pain/POWELL/Cramping/Fever Stop: 03/15/18 06:43 Last Admin: 02/14/18 23:27 Dose: 600 mg Admin: 02/14/18 04:27 Dose: 600 mg Admin: 02/13/18 17:18 Dose: 600 mg Prenat Multivit/Heavy Equipment Technician/Iron/Folic Ac ( Vitamin) 1 tab PO [facility] Stop: 03/15/18 08:59 Last Admin: 02/14/18 09:01 Dose: 1 tab Admin: 02/13/18 10:24 Dose: 1 tab Sertraline HCl (Zoloft) 100 mg PO [facility] Stop: 03/14/18 08:59 Last Admin: 02/14/18 09:01 Dose: 100 mg Admin: 02/13/18 10:28 Dose: 100 mg Admin: 02/12/18 09:11 Dose: 100 mg Sertraline HCl (Zoloft) 75 mg PO [facility] Stop: 03/14/18 08:59 Last Admin: 02/14/18 09:02 Dose: 75 mg Admin: 02/13/18 10:28 Dose: 75 mg Admin: 02/12/18 09:11 Dose: 75 mg
[2018-02-15] MEDS: PRENATAL VITAMIN 1 TAB PO SCH (08:48)
[2018-02-15] MEDS: DOCUSATE SODIUM 100 MG CAP PO SCH (08:48)
[2018-02-15] MEDS: SERTRALINE HCL 100 MG TABLET PO SCH (08:48)
[2018-02-15] MEDS: SERTRALINE HCL 50 MG TABLET PO SCH (08:49)
== END 2018-02-15 13:15 | disposition home or self-care (01) | DRG 807 ==
LOC: OPB 01:10 → 4S1 01:14 → 4S2 02-13 10:08

== ENCOUNTER 2020-12-17 07:38 | Inpatient (IN) ==
[2020-12-17] MEDS ORDERED: OXYTOCIN 30 UNITS/500 ML BAG IV PRN (07:40)
[2020-12-17 08:11] LABS: Hematocrit (blood only) 38.7 % (37-47); Hemoglobin 13.2 g/dL (12.0-16.0); Mean Corpuscular Hgb Conc 34.1 g/dL (32-36); Mean Corpuscular Volume 96.8 fL (80-100); Mean Platelet Volume 10.5 fL (7.4-10.4); Platelet Count 134 K/uL (130-400); RDW Coefficient of Variation 13.4 % (11.5-14.5); RDW Standard Deviation 47.1 fL (36.4-46.3); White Blood Count 8.24 K/uL (4.8-10.8)
--- NOTE | 2020-12-17 08:23 | History & Physical Report ---
Date of Service December 17, 2020 Assessment & Plan (1) Encounter for induction of labor: Plan: 35 year old at 40 weeks coming in for induction of labor. -A+, GBS-, Rubella Immune. -Oxytocin and LR started for induction. -Continue to monitor FHR and contractions as well as progress of the mother. Admission and Anticipated Discharge Date Admission Date: December 17, 2020 History of Present Illness Primary Care Provider: Paulette Arroyo PA-C at 40 weeks confirmed via LMP. Here for induction of labor. No complications with this . Has been attending OB appointments regularly. Currently taking vitamin, OTC iron supplement, Zoloft 200mg. Contractions: none Fluid or blood loss: none movement: active Labs: - A+ - Antibody screen: Negative - Hgb:13.2 - Hct: 38.7 - WBC: 8.24 - Plt: 134 - Rubella Immune - RPR: Non-reactive - Gonorrhea: Not detected - Chlamydia: Not detected - HIV: Negative - HbSAg: Negative - GBS negative - Glucose tolerance x2: 116, 86. Allergies Allergy/AdvReac Type Severity Reaction Status Date / Time No Known Drug Allergies Allergy Mild . Verified 12/16/20 14:38 Home Medications Medication Instructions Recorded Confirmed Type sertraline 100 mg tablet (Zoloft) 200 mg PO DAILY tab 04/30/20 12/17/20 History breast pump #1 ea 09/26/20 12/16/20 Rx ferrous sulfate 325 mg (65 mg 325 mg PO DAILY 12/17/20 12/17/20 History iron) tablet (Iron (ferrous sulfate)) vits no.124-ferrous fum 1 tab PO DAILY 12/17/20 12/17/20 History 27 mg iron-folic acid 800 mcg tablet ( Vitamin) Patient History Medical History 39 weeks gestation of History of chicken pox History of depression PROM (premature rupture of membranes) Spontaneous vaginal delivery Surgical History History of wisdom tooth extraction Hx of tonsillectomy Previous back surgery Family History Mother Breast cancer Multiple sclerosis Father Diabetes Myocardial infarction Denies family history of Ovarian cancer Colorectal cancer Social History (Updated 04/30/20 @ 13:42 by Nadine Badillo RN) Smoking Status: Never smoker Second Hand Exposure: No; Hx Alcohol Use: No Hx Substance Use: No Preferred Language: Guamanian Communication Ability: Effective Mental Health Specialist Required: No Beliefs That Will Affect Care: None marital status: marital status details: Tuan Buchanan (40) [phone] Current Living Situation: Family Current Living Situation Comment: lives with spouse, child, 2 dogs current occupational status: employed current occupation: criminal justice lawyer Feels Safe at Home: Yes Safety Concerns: Feels Safe At This Time Assistive Devices: None OB History Previous delivered at 39 weeks and 3 days without complication. Physical Exam Physical Exam: General: Alert, oriented. No acute distress. Cardiac: Regular rate and rhythm, no murmurs/rubs/gallops. Respiratory: Clear to auscultation bilaterally a/p, no wheezes/rales/rhonchi. No increased work of breathing. Symmetrical chest rise. No respiratory distress. Pelvic: Dilation 2.0cm; Effacement 50; Station -[address] Luna. Lower Extremities: No lower extremity edema or swelling. No deep calf pain. Conrado's negative bilaterally Baseline: 155 Variability:Mild Accelerations: Present Decelerations: Not present. Supervising Physician Co-Signing Physician Notes Resident Physician Supervision Note: I interviewed and examined the patient. Discussed with Dr. Cohen and agree with findings and plan as documented in the note. Any exceptions or clarifications are listed here: IOL with pitocin. Documented By: Silvia Luna DO Resident Activity Tracking Resident Involvement: Resident Care Provided Care Provided: OB Delivery
--- NOTE | 2020-12-17 08:38 | Anesthesiology Consultation ---
Date of Service December 17, 2020 Assessment & Plan Chart Review Chart Review: Acceptable Risk for Surgery, Patient NOT seen in Pre Admission Testing and Acceptable Risk for Labor Epidural Consults Requested none Proposed Anesthesia Anesthesia Type: Labor Epidural and CSE History Height/Weight Height: 5 ft 7 in Weight: 113.398 kg Allergies Allergy/AdvReac Type Severity Reaction Status Date / Time No Known Drug Allergies Allergy Mild . Verified 12/16/20 14:38 Medications Home Medications Medication Instructions Recorded Confirmed Last Taken sertraline 100 mg tablet (Zoloft) 200 mg PO DAILY tab 04/30/20 12/17/20 12/17/20 breast pump #1 ea 09/26/20 12/16/20 Unknown ferrous sulfate 325 mg (65 mg 325 mg PO DAILY 12/17/20 12/17/20 12/15/20 iron) tablet (Iron (ferrous sulfate)) vits no.124-ferrous fum 1 tab PO DAILY 12/17/20 12/17/20 12/15/20 27 mg iron-folic acid 800 mcg tablet ( Vitamin) Past Medical History Medical History 39 weeks gestation of History of chicken pox History of depression PROM (premature rupture of membranes) Spontaneous vaginal delivery Exercise / Class Metabolic Activity II 4-5 Yardwork/Stairs/Walk up hill Past Family History Family History Mother Breast cancer Multiple sclerosis Father Diabetes Myocardial infarction Denies family history of Ovarian cancer Colorectal cancer Past Surgical History Surgical History History of wisdom tooth extraction Hx of tonsillectomy Previous back surgery Past Anesthesia History No Hx of Anesthesia Complications and No Family Hx of Anesthesia Complications History of PONV No Hx of PONV and No Hx of Motion Sickness Social History Smoking Status: Never smoker Hx Alcohol Use: No Hx Substance Use: No substance use type: does not use Physical Exam Vital Signs Last Vital Signs Temp 36.7 C 12/17/20 07:51 Resp 18 12/17/20 07:51 Testing Laboratory Results 12/17/20 07:50
[2020-12-17] MEDS: LACTATED RINGER'S 1,000 ML IV PRN ×3 (11:02→22:23)
[2020-12-17] MEDS: OXYTOCIN 30 UNITS/500 ML BAG IV PRN ×2 (11:03→22:01)
--- NOTE | 2020-12-17 15:15 | Labor Progress Brief Note ---
Date of Service December 17, 2020 Subjective Comfortable. FHT Cat 1 [place] Q 2 SVE 4/50/-2 AROM clear fluid. Continue labor. Assessment & Plan Admission and Anticipated Discharge Date Admission Date: December 17, 2020 Results & Data ([facility]) Vital Signs (Past 12 Hours) Vital Signs Temp Pulse Resp BP 12/17/20 14:52 80 132/75 12/17/20 14:30 36.7 C 18 12/17/20 12:15 36.6 C 70 18 122/70 12/17/20 11:05 73 120/68 12/17/20 08:44 81 116/72 12/17/20 07:51 36.7 C 18 12/17/20 07:50 36.7 C 18 Coding Level of Care Code None
[2020-12-17] MEDS ORDERED: fentaNYL citrate 100 MCG/2 ML VIAL ONE (17:14)
[2020-12-17] MEDS ORDERED: SODIUM CHLORIDE 0.9% INJ 10 ML VIAL ONE (17:14)
[2020-12-17] MEDS ORDERED: ePHEDrine sulfate 50 MG/ML AMP ONE (17:14)
[2020-12-17] MEDS ORDERED: BUPIVACAINE 0.25% 30 ML VIAL ONE (17:14)
[2020-12-17] MEDS ORDERED: fentaNYL 2MCG/ML ROPIVACAINE 1.25MG/ML 100 ML BAG EPI ONE (17:15)
[2020-12-17] MEDS ORDERED: PROMETHAZINE HCL 25 MG in SODIUM CHLORIDE 0.9% 50 ML IV PRN (17:47)
[2020-12-17] MEDS ORDERED: ONDANSETRON INJ 2 MG/ML 2 ML VIAL IV PRN (17:47)
[2020-12-17] MEDS ORDERED: NALOXONE HCL 1 MG in SODIUM CHLORIDE 0.9% 1000ML 1,000 ML IV PRN (17:47)
[2020-12-17] MEDS ORDERED: fentaNYL 2MCG/ML ROPIVACAINE 1.25MG/ML 100 ML BAG EPI PRN (17:47)
[2020-12-17] MEDS ORDERED: diphenhydrAMINE 50 MG/ML VIAL IV PRN (17:47)
[2020-12-17] MEDS ORDERED: ePHEDrine sulfate 50 MG/ML AMP IV PRN (17:47)
[2020-12-17] MEDS ORDERED: NALBUPHINE HCL INJ 10 MG/ML AMP IV PRN (17:47)
[2020-12-17] MEDS ORDERED: NALOXONE HCL 0.4 MG/1 ML VIAL/CARP IV PRN (17:47)
--- NOTE | 2020-12-17 21:29 | Labor Progress Brief Note ---
Date of Service December 17, 2020 Subjective Comfortable with epidural. FHT Cat 1 [place] Q 2-3 SVE //-2 Continue pitocin, reposition Assessment & Plan Admission and Anticipated Discharge Date Admission Date: December 17, 2020 Results & Data ([facility]) Vital Signs (Past 12 Hours) Vital Signs Temp Pulse Resp BP Pulse Ox 12/17/20 21:23 93 H 113/59 L 12/17/20 21:20 88 97 12/17/20 21:15 106 H 99 12/17/20 21:10 90 100 12/17/20 21:08 90 142/80 H 12/17/20 21:05 89 99 12/17/20 21:00 86 100 12/17/20 20:55 82 98 12/17/20 20:52 76 128/67 12/17/20 20:50 94 H 99 12/17/20 20:45 75 100 12/17/20 20:40 77 99 12/17/20 20:37 82 110/55 L 12/17/20 20:35 75 97 12/17/20 20:30 77 18 99 12/17/20 20:25 90 99 12/17/20 20:22 87 139/70 12/17/20 20:20 78 96 12/17/20 20:18 79 94 12/17/20 20:15 83 95 12/17/20 20:11 76 94 12/17/20 20:10 81 95 12/17/20 20:07 80 129/64 12/17/20 20:05 81 95 12/17/20 20:00 76 95 12/17/20 19:55 79 95 12/17/20 19:54 75 94 12/17/20 19:52 81 128/64 12/17/20 19:50 74 95 12/17/20 19:48 77 94 12/17/20 19:45 82 95 12/17/20 19:40 76 95 12/17/20 19:38 75 127/66 12/17/20 19:35 78 95 12/17/20 19:32 36.9 C 18 99 12/17/20 19:30 36.9 C 75 18 96 12/17/20 19:25 78 97 12/17/20 19:22 81 131/66 12/17/20 19:20 74 96 12/17/20 19:15 88 96 12/17/20 19:10 82 97 12/17/20 19:07 88 130/67 12/17/20 19:05 84 98 12/17/20 19:00 88 97 12/17/20 18:58 74 94 12/17/20 18:57 85 116/62 12/17/20 18:55 85 95 12/17/20 18:50 79 95 12/17/20 18:47 71 116/60 12/17/20 18:45 85 95 12/17/20 18:40 84 96 12/17/20 18:37 78 116/60 12/17/20 18:35 72 96 12/17/20 18:30 90 96 12/17/20 18:28 81 118/63 12/17/20 18:25 85 97 12/17/20 18:20 85 98 12/17/20 18:17 84 119/59 L 12/17/20 18:15 83 98 12/17/20 18:10 83 97 12/17/20 18:06 36.6 C 93 H 16 121/64 12/17/20 18:05 94 H 98 12/17/20 18:04 86 128/70 12/17/20 18:02 94 H 123/65 12/17/20 18:00 99 H 124/66 98 12/17/20 17:58 99 H 126/69 12/17/20 17:56 91 H 143/71 H 12/17/20 17:55 79 97 12/17/20 17:54 108 H 124/61 12/17/20 17:52 97 H 114/57 L 12/17/20 17:50 92 H 117/64 98 12/17/20 17:48 96 H 119/56 L 12/17/20 17:46 85 119/53 L 12/17/20 17:45 95 H 97 12/17/20 17:44 97 H 116/57 L 12/17/20 17:42 88 120/57 L 12/17/20 17:40 88 97 12/17/20 17:38 86 115/56 L 12/17/20 17:35 82 98 12/17/20 17:30 77 99 12/17/20 17:25 78 99 12/17/20 17:20 82 98 11/10/21 16:25 37.2 C 71 19 130/56 L 12/17/20 14:52 80 132/75 12/17/20 14:30 36.7 C 18 12/17/20 12:15 36.6 C 70 18 122/70 12/17/20 11:05 73 120/68 Coding Level of Care Code None
--- NOTE | 2020-12-18 05:03 | Delivery Summary ---
Vaginal Delivery Summary Date of Service December 18, 2020 Vaginal Delivery Summary and 2nd Degree LAC Vaginal Delivery Summary: Pre-delivery diagnoses: 35yo @ 40 02/13, eIOL Post-delivery diagnoses: same Procedure: spontaneous vaginal delivery, repair of 2nd degree perineal laceration Surgeon: Silvia Luna DO Complications: none Findings: Viable male . Apgars: 8/8. Weight pending, please see nursery records Estimated blood loss: 300ml Description of delivery: The patient progressed to complete with epidural anesthesia. She then began to push. She spontaneously vaginally delivered a viable from the cephalic presentation. The head delivered in KI position. Nuchal x 1 easily reduced. The anterior shoulder delivered, followed by the posterior shoulder, followed by the body. The baby was placed on mother's abdomen and a spontaneous cry was heard. Delayed cord clamping was employed, and the cord was doubly clamped and cut. Cord blood was obtained. The placenta was delivered spontaneously intact with a 3-vessel cord. The uterus and vagina were swept of clots and debris. IV pitocin was given. The uterine fundus became firm, but there was some atony of lower uterine cervix. Hemabate x 1 dose was given IM, along with uterine massage. The cervix, vagina, and perineum were inspected and a 2nd degree perineal laceration was noted and repaired with 3-0 vicryl in standard fashion. Excellent hemostasis was observed and good uterine tone at the conclusion of case. The mother and baby are recovering in stable and good condition in the room. Sponge, needle and instrument counts were correct x 2. Silvia Luna DO [facility] [place] Vaginal Delivery Charge Vaginal Delivery Codes: 17903 global code for the antepartum, delivery, and post- Delivery Type Details: and 2nd Degree LAC
[2020-12-18] MEDS ORDERED: ACETAMINOPHEN 325 MG TAB PO PRN (05:27)
[2020-12-18] MEDS ORDERED: OXYTOCIN 30 UNITS/500 ML BAG IV PRN (05:27)
[2020-12-18] MEDS ORDERED: IBUPROFEN 600 MG TAB PO PRN (05:27)
[2020-12-18] MEDS ORDERED: DIPHTHERIA/TETANUS/PERTUSSIS 0.5 ML SYR/VIAL IM ONE (05:27)
[2020-12-18] MEDS ORDERED: HYDROCORTISONE ACETATE 25 MG SUPP PR PRN (05:27)
[2020-12-18] MEDS ORDERED: oxyCODONE/ACETAMINOPHEN 5mg/325mg TAB PO PRN (05:27)
[2020-12-18] MEDS ORDERED: CARBOPROST TROMETHAMINE 250 MCG/ML AMPUL IM ONE (05:27)
[2020-12-18] MEDS ORDERED: BENZOCAINE 20% AER SPR 82.5 GM CAN EXT PRN (05:27)
[2020-12-18] MEDS ORDERED: SUPERCREAM 0.870% 15 GM JAR EXT PRN (05:27)
[2020-12-18] MEDS: SERTRALINE HCL 100 MG TABLET PO SCH (07:32)
[2020-12-18] MEDS: PRENATAL VITAMIN 1 TAB PO SCH (07:32)
[2020-12-18] MEDS: DOCUSATE SODIUM 100 MG CAP PO SCH ×2 (07:32→20:56)
--- NOTE | 2020-12-18 07:37 | Anesthesia Procedure Note ---
Date of Service December 18, 2020 Anesthesia Post Epidural Note Vital Signs Vital Signs: Temp Pulse Resp BP Pulse Ox 36.7 C 83 18 135/79 94 12/18/20 07:05 12/18/20 07:25 12/18/20 07:05 12/18/20 07:25 12/18/20 04:35 Pain Intensity Bilateral Episiotomy/Laceration: Pain Intensity: 2 Notes Mental Status: alert / awake / arousable and participated in evaluation Nausea / Vomiting: adequately controlled Pain: adequately controlled Airway Patency, RR, SpO2: stable & adequate BP & HR: stable & adequate Hydration State: stable & adequate Neuraxial Anesthesia: was administered and sensory block is resolving Anesthetic Complications: no major complications apparent and Pt Satisfied with anesthetic care Epidural: Removed without complications and With tip intact
[2020-12-19] MEDS ORDERED: METHYLERGONOVINE MALEATE 0.2 MG/ML AMP ONE (01:11)
[2020-12-19 06:20] LABS: Hematocrit (blood only) 31.1 % (37-47); Hemoglobin 10.4 g/dL (12.0-16.0)
--- NOTE | 2020-12-19 06:23 | Obstetrical Progress Note ---
Date of Service <Edgardo Cohen DO - Last Filed: 12/19/20 07:05> December 19, 2020 Assessment & Plan <Edgardo Cohen DO - Last Filed: 12/19/20 07:05> (1) Encounter for care and examination after delivery: 35 yo post day 1 from vaginal delivery, doing well. -Continue routine post care. - vital signs reviewed and WNL. (Tmax 37.2) -Blood type A+, GBS -, Rubella Immune -Encourage ambulation, recommended to control pain with Motrin, tylenol PRN. -encourage breast feeding -hemoglobin 10.4 -Discussed discharge with patient. Patient wants to go home today if possible. She will follow up with OB clinic in 6 weeks. <Aileen Mcwilliams MD, FACOG - Last Filed: 12/19/20 07:06> (1) Encounter for care and examination after delivery: Subjective <Edgardo Cohen - Last Filed: 12/19/20 07:05> Ambulation: ambulating normally Voiding: no voiding problems Passing Gas:: Yes Diet Tolerance:: regular diet Lochia:: Small Feeding Type:: breast feeding Current Pain Level(1-10): 0 Review of Systems Denies fever, chills, sweats Denies shortness of breath, difficulty breathing, chest pain, palpitations, chest pressure. Denies breast pain. Denies dysuria. Denies headache or changes in vision Physical Exam <Edgardo Cohen DO - Last Filed: 12/19/20 07:05> General: Alert, oriented. No acute distress. Cardiac: Regular rate and rhythm, no murmurs/rubs/gallops. Respiratory: Clear to auscultation bilaterally a/p, no wheezes/rales/rhonchi. No increased work of breathing. Symmetrical chest rise. No respiratory distress. Abdomen: Soft, nontender, nondistended. Bowel sounds present. Uterus: Uterine fundus firm, palpable 3 cm below umbilicus. Lower Extremities: No lower extremity edema or swelling. No deep calf pain. Conrado's negative bilaterally Results & Data ([facility]) <Edgardo Kleinserasarah beth - Last Filed: 12/19/20 07:05> Vital Signs (Past 12 Hours) Vital Signs Temp Pulse Resp BP Pulse Ox 12/19/20 05:10 36.5 C 73 17 104/64 98 12/18/20 23:30 36.8 C 87 17 116/73 97 12/18/20 19:20 36.6 C 94 H 16 119/76 96 <Aileen Mcwilliams MD, FACOG - Last Filed: 12/19/20 07:06> Co-Signing Physician Notes Resident Physician Supervision Note: I interviewed and examined the patient. Discussed with Dr. Cohen and agree with findings and plan as documented in the note. Any exceptions or clarifications are listed here: Doing well. PLan d/c. Instructions given. Documented By: Aileen Mcwilliams MD, FACOG Resident Activity Tracking <Edgardo Cohen DO - Last Filed: 12/19/20 07:05> Resident Involvement: Resident Care Provided Care Provided: OB Delivery
[2020-12-19] MEDS: DOCUSATE SODIUM 100 MG CAP PO SCH (08:38)
[2020-12-19] MEDS: PRENATAL VITAMIN 1 TAB PO SCH (08:38)
[2020-12-19] MEDS: SERTRALINE HCL 100 MG TABLET PO SCH (08:39)
[2020-12-19] MEDS ORDERED: bisacodyL 5 MG TABEC PO SCH (20:00)
[2020-12-20] MEDS ORDERED: bisacodyL 10 MG SUPP PR PRN (05:27)
== END 2020-12-19 12:30 | disposition home or self-care (01) | DRG 807 ==
LOC: 4S1 07:38 → 4S2 12-18 08:31

== ENCOUNTER 2024-01-04 07:31 | Inpatient (IN) ==
--- NOTE | 2024-01-04 08:04 | History & Physical Report ---
Date of Service January 04, 2024 Assessment & Plan (1) Gestational diabetes: (2) Group beta Strep positive: (3) Encounter for supervision of normal intrauterine in multigravida, antepartum: Plan Pt started on Pitocin at 2, increasing by 2 with LR 50mls/hr Initiate GBS treatment, penicillin Consult Anesthesiology for epidural as needed Monitor BSG Admission and Anticipated Discharge Date Admission Date: January 04, 2024 History of Present Illness Primary Care Provider: Paulette Arroyo PA-C Pt is 38 yo female who presents for IOL at 39w6d. has been complicated by late diagnosed GDM and GBS+. GBS to be treated during labor. This morning, pt reports mild cramping contractions. Denies leakage of fluid, CP, SOB, POWELL, RUQ pain, or increase in LE swelling. Pt is feeling baby move consistently. Allergies Allergy/AdvReac Type Severity Reaction Status Date / Time No Known Drug Allergies Allergy Mild . Verified 01/03/24 13:05 Home Medications Medication Instructions Recorded Confirmed Type sertraline 100 mg tablet (Zoloft) 200 mg PO DAILY 04/30/20 01/03/24 History vits no.124-ferrous fum 1 tab PO DAILY 12/17/20 01/03/24 History 27 mg iron-folic acid 800 mcg tablet ( Vitamin) bupropion HCl 150 mg tablet,12 hr mg PO 05/19/23 01/03/24 History sustained-release ondansetron HCl 4 mg tablet 4 mg PO Q6H PRN nausea and 11/09/23 01/03/24 Rx vomiting #20 tabs Patient History Medical History (Updated 01/04/24 @ 07:57 by Breann Sparrow DO) Low lying placenta without hemorrhage, antepartum Encounter for care and examination after delivery Encounter for induction of labor History of depression History of chicken pox 39 weeks gestation of Spontaneous vaginal delivery PROM (premature rupture of membranes) Surgical History History of wisdom tooth extraction Hx of tonsillectomy Previous back surgery Family History Mother Breast cancer Multiple sclerosis Father Diabetes Myocardial infarction Denies family history of Ovarian cancer Colorectal cancer Social History (Updated 05/19/23 @ 10:50 by Miroslava Herzog) Smoking Status: Never smoker Second Hand Exposure: No; Do You Dip or Chew Tobacco: No; Tobacco Cessation Education Requested by Patient: No Hx Alcohol Use: No Hx Substance Use: No Preferred Language: Irish Communication Ability: Effective Grill Prep Cook Required: No Beliefs That Will Affect Care: None marital status: marital status details: John (30) [phone] Current Living Situation: Spouse Current Living Situation Comment: - John ; [place] [address], [place] [address] current occupational status: employed current occupation: machine feeder Other Information That Helps Us Care for You: No Feels Safe at Home: Yes Safety Concerns: Feels Safe At This Time Assistive Devices: None Review of Systems As per HPI Physical Exam Constitutional: WD/WN, vitals as above Respiratory: normal respiratory effort, lungs clear to auscultation Gastrointestinal (Abdomen): normal bowel sounds, soft, nontender, no hepatosplenomegaly Uterine fundus firm Neurologic: PERRL, EOMI, accommodation nl, no face palsy, no dysarthria Moving all 4 extremities on command Psychiatric: A+Ox3, euthymic affect Genitourinary: Manual OB Exam: + cervical dilation 3 cm, + cervical effacement (Soft and mid) 60% and + station -2 OB Exam Monitor Tracing: + external FHT monitor used and + category I Supervising Physician Co-Signing Physician Notes Resident Physician Supervision Note: I interviewed and examined the patient. Discussed with Dr. Sparrow and agree with findings and plan as documented in the note. Any exceptions or clarifications are listed here: Patient is a 38yowf with iup at 39 6/7 weeks who presents for iol. she was diagnosed with GDM but never had the ability to start checking blood sugars, so essentially untreated. Last ultrasound 12/14 for AC 69%, efw 49%. Cervix favorable. rare contraction. category one strip. Plan pitocin, arom. pcn for gbs positive. epidural on demand. anticipate . Documented By: Aileen Mcwilliams MD, FACOG Resident Activity Tracking Resident Involvement: Resident Care Provided Care Provided: Adult [facility] Medicine
[2024-01-04] MEDS ORDERED: LIDOCAINE 1% LOCAL 20 ML VIAL INFIL PRN (08:25)
[2024-01-04] MEDS ORDERED: OXYTOCIN 30 UNITS/NSS 30 UNITS/500 ML BAG IV PRN ×2 (08:25→22:36)
[2024-01-04 09:12] LABS: Hematocrit (blood only) 36.2 % (37.0-47.0); Hemoglobin 12.6 g/dl (12.0-16.0); Mean Corpuscular Hemoglobin 32.7 pg (25.0-34.0); Mean Corpuscular Hgb Conc 34.8 g/dL (32.0-36.0); Mean Platelet Volume 10.6 fL (9.4-12.4); Platelet Count 152 K/uL (130-400); RDW Coefficient of Variation 12.8 % (11.5-14.5); RDW Standard Deviation 43.8 fL (36.4-46.3); Red Blood Count 3.85 M/uL (4.20-5.40); White Blood Count 6.69 K/ul (4.8-10.8)
[2024-01-04] MEDS: LACTATED RINGER'S 1,000 ML IV SCH (09:13)
[2024-01-04] MEDS: PENICILLIN GK 6 MU in SODIUM CHLORIDE 0.9% 250 ML IV STA (09:14)
[2024-01-04] MEDS: OXYTOCIN 30 UNITS/NSS 30 UNITS/500 ML BAG IV PRN (09:16)
[2024-01-04] MEDS: PENICILLIN GK 3 MU in DEXTROSE 5% 100 ML IV PRN (12:51)
--- NOTE | 2024-01-04 13:34 | Labor Progress Brief Note ---
Date of Service January 04, 2024 Subjective Feeling some contractions, not painful. Assessment & Plan (1) Encounter for induction of labor: Plan continue current plan. fetus category one. anticipate . Admission and Anticipated Discharge Date Admission Date: January 04, 2024 Physical Exam Physical Exam: cx--/-2 arom--thin green mec toco--q2-4, pit at 14 efm--130s with mod variability, accels to 160s, no decels Results & Data Vital Signs (Past 12 Hours) Vital Signs Temp Pulse Resp BP 01/04/24 13:32 76 118/56 L 01/04/24 13:02 88 105/72 01/04/24 13:00 16 01/04/24 13:00 37.2 C 16 01/04/24 12:32 84 94/65 L 01/04/24 12:02 75 101/59 L 01/04/24 11:32 74 98/53 L 01/04/24 11:02 77 93/61 L 01/04/24 10:02 79 100/54 L 01/04/24 09:32 77 91/54 L 01/04/24 08:16 91 H 115/69 01/04/24 07:56 37.3 C 91 H 16 115/69 Coding Level of Care Code None Diagnoses Encounter for induction of labor Z34.90
--- NOTE | 2024-01-04 16:30 | Labor Progress Brief Note ---
Date of Service January 04, 2024 Subjective more uncomfortable Assessment & Plan (1) Gestational diabetes: (2) Group beta Strep positive: Plan continue current management. will get epidural . anticipate . Admission and Anticipated Discharge Date Admission Date: January 04, 2024 Physical Exam Physical Exam: cx--5/80/-2 toco--q2-3, pit at 18 efm--130s wtih mod variability , accels to 160s, no decels Results & Data Vital Signs (Past 12 Hours) Vital Signs Temp Pulse Resp BP 01/04/24 16:03 81 103/67 01/04/24 15:32 74 111/65 01/04/24 15:27 16 01/04/24 15:27 16 01/04/24 15:02 90 107/73 01/04/24 15:00 36.7 C 01/04/24 14:32 76 119/71 01/04/24 14:03 75 91/54 L 01/04/24 13:32 76 118/56 L 01/04/24 13:25 37.1 C 01/04/24 13:02 88 105/72 01/04/24 13:00 16 01/04/24 13:00 37.2 C 16 01/04/24 12:32 84 94/65 L 01/04/24 12:02 75 101/59 L 01/04/24 11:32 74 98/53 L 01/04/24 11:02 77 93/61 L 01/04/24 10:02 79 100/54 L 01/04/24 09:32 77 91/54 L 01/04/24 08:16 91 H 115/69 01/04/24 07:56 37.3 C 91 H 16 115/69 Coding Level of Care Code None Diagnoses Gestational diabetes O24.419 Group beta Strep positive B95.1
[2024-01-04] MEDS ORDERED: NALOXONE HCL 1 MG in SODIUM CHLORIDE 0.9% 1,000 ML IV PRN (16:53)
[2024-01-04] MEDS ORDERED: BUPIVACAINE 0.25% PF 30 ML VIAL EPI STA (16:53)
[2024-01-04] MEDS ORDERED: ONDANSETRON INJ 2 MG/ML 2 ML VIAL IV PRN (16:53)
[2024-01-04] MEDS ORDERED: SODIUM CHLORIDE 0.9% PF INJ 10 ML VIAL EPI STA (16:53)
[2024-01-04] MEDS ORDERED: BUPIVACAINE 0.25% PF 30 ML VIAL EPI PRN (16:53)
[2024-01-04] MEDS ORDERED: fentANYL 2 MCG/ML BUPIVacaine 0.125%-NSS 100ML BAG EPI PRN (16:53)
[2024-01-04] MEDS ORDERED: NALOXONE HCL 0.4 MG/1 ML VIAL/CARP IV PRN (16:53)
[2024-01-04] MEDS ORDERED: ROPIVACAINE 0.5% PF 5 MG/ML 20 ML VIAL EPI PRN (16:53)
[2024-01-04] MEDS ORDERED: NALBUPHINE HCL INJ 10 MG/ML AMP IV PRN (16:53)
[2024-01-04] MEDS ORDERED: SODIUM CHLORIDE 0.9% PF INJ 10 ML VIAL EPI PRN (16:53)
[2024-01-04] MEDS ORDERED: fentaNYL citrate PF 100 MCG/2 ML VIAL EPI STA (16:53)
[2024-01-04] MEDS ORDERED: LIDOCAINE 2%/EPINEPHRINE 1:200,000 20 ML PF EPI STA (16:53)
[2024-01-04] MEDS ORDERED: LIDOCAINE 2% MPF LOCAL 5 ML VIAL EPI PRN (16:53)
[2024-01-04] MEDS ORDERED: ePHEDrine sulfate 50 MG/ML AMP IV PRN (16:53)
[2024-01-04] MEDS ORDERED: diphenhydrAMINE 50 MG/ML VIAL IV PRN (16:53)
[2024-01-04] MEDS ORDERED: fentaNYL citrate PF 100 MCG/2 ML VIAL EPI PRN (16:53)
--- NOTE | 2024-01-04 16:55 | Anesthesiology Consultation ---
Date of Service January 04, 2024 Assessment & Plan (1) Encounter for pre-operative examination: Chart Review Chart Review: Patient NOT seen in Pre Admission Testing and Acceptable Risk for Labor Epidural Consults Requested none History Height/Weight Height: 5 ft 7 in Weight: 112.945 kg Allergies Allergy/AdvReac Type Severity Reaction Status Date / Time No Known Drug Allergies Allergy Mild . Verified 01/03/24 13:05 Medications Home Medications Medication Instructions Recorded Confirmed Last Taken sertraline 100 mg tablet (Zoloft) 200 mg PO DAILY 04/30/20 01/04/24 01/03/24 06:00 vits no.124-ferrous fum 1 tab PO DAILY 12/17/20 01/03/24 12/15/20 27 mg iron-folic acid 800 mcg tablet ( Vitamin) bupropion HCl 150 mg tablet,12 hr mg PO 05/19/23 01/03/24 01/03/24 06:00 sustained-release ondansetron HCl 4 mg tablet 4 mg PO Q6H PRN nausea and 11/09/23 01/03/24 Unknown vomiting #20 tabs Active Medications Generic Name Dose Route Start Last Admin Trade Name Freq PRN Reason Stop Dose Admin Oxytocin 30 units in 500 mls @ 18 mls/hr 01/04/24 07:44 01/04/24 16:25 Pitocin 30 Units/Nss IV 01/06/24 07:43 1.08 units/hr .Q24H PRN 18 mls/hr Labor Induction/Augmentation Titration Protocol 1.08 UNITS/HR Lactated Ringer's 1,000 mls @ 50 mls/hr 01/04/24 07:45 01/04/24 16:35 Lr IV 01/05/24 07:44 999 mls/hr .Q20H WENDY Infusion Penicillin G Potassium 3 mu/ 106 mls @ 100 mls/hr 01/04/24 15:44 01/04/24 16:24 Dextrose IV 01/14/24 15:43 100 mls/hr Q4H PRN Administration GBS(+) Until Delivery Past Medical History Medical History Anxiety and depression Low lying placenta without hemorrhage, antepartum Encounter for care and examination after delivery Encounter for induction of labor History of depression History of chicken pox 39 weeks gestation of Spontaneous vaginal delivery PROM (premature rupture of membranes) Exercise / Class Metabolic Activity II 4-5 Yardwork/Stairs/Walk up hill Past Family History Family History Mother Breast cancer Multiple sclerosis Father Diabetes Myocardial infarction Denies family history of Ovarian cancer Colorectal cancer Past Surgical History Surgical History History of wisdom tooth extraction Hx of tonsillectomy Previous back surgery Social History Smoking Status: Never smoker Do You Dip or Chew Tobacco: No Hx Alcohol Use: No Hx Substance Use: No substance use type: does not use Physical Exam Vital Signs Last Vital Signs Temp 36.7 C 01/04/24 15:00 Pulse 89 01/04/24 17:20 Resp 16 01/04/24 15:27 BP 103/67 01/04/24 16:03 Pulse Ox 90 01/04/24 17:20 Testing Laboratory Results 01/04/24 08:55 Blood Type A Positive 01/04/24 08:55 Blood Type Cancelled 01/04/24 08:55 Antibody Screen Cancelled 01/04/24 08:55 Antibody Screen NEGATIVE 01/04/24 08:55 01/04/24 01/04/24 14:36 09:48 POC Glucose 85 104 H
[2024-01-04] MEDS: fentANYL 2 MCG/ML BUPIVacaine 0.125%-NSS 100ML BAG ONE (17:22)
[2024-01-04] MEDS: BUPIVACAINE 0.25% PF 30 ML VIAL ONE (17:22)
[2024-01-04] MEDS: fentaNYL citrate PF 100 MCG/2 ML VIAL ONE (17:22)
[2024-01-04] MEDS: SODIUM CHLORIDE 0.9% PF INJ 10 ML VIAL ONE (17:22)
[2024-01-04] MEDS: LIDOCAINE 2%/EPINEPHRINE 1:200,000 20 ML PF ONE (17:22)
[2024-01-04] MEDS: ePHEDrine sulfate 50 MG/ML AMP ONE (17:31)
--- NOTE | 2024-01-04 22:34 | Delivery Summary ---
Vaginal Delivery Summary Date of Service January 04, 2024 Vaginal Delivery Summary and 2nd Degree LAC Pre-operative Diagnosis: at 39 weeks untreated GDM GBS positive Post-operative Diagnosis: same Procedure: pitocin arom epidural second degree laceration and repair EBL: 465cc Anesthesia: epidural Procedure: The patient progressed to c/c/+1 and felt urge to pusht. The patient pushed for 2 contractions to deliver a viable male infant in jett position. A loose nuchal cord x 1 was easily reduced. The nose and mouth were bulb suctioned on the perineum and the rest of the infant was then delivered without difficulty. The baby was vigorous. The nose and mouth were again bulb suctioned and the infant was placed in the maternal abdomen for drying and attention. Cord was clamped and cut at one minute of life. Cord blood and segment obtained. Placenta delivered spontaneous, intact with a three vessel cord. Cervix/sulci/rectum were intact. A second degree perineal laceration was repaired in the normal standard fashion. Hemostasis obtained with dilute pitocin and fundal massage and cytotec 800mcg rectally. Apgars were 8/9. Mother and baby doing well at the end of the delivery. [facility] Vaginal Delivery Charge Delivery Type Details: and 2nd Degree LAC
[2024-01-04] MEDS ORDERED: oxyCODONE/ACETAMINOPHEN 5mg/325mg TAB PO PRN (22:36)
[2024-01-04] MEDS ORDERED: HYDROCORTISONE ACETATE 25 MG SUPP PR PRN (22:36)
[2024-01-04] MEDS ORDERED: IBUPROFEN 600 MG TAB PO PRN (22:36)
[2024-01-04] MEDS ORDERED: ACETAMINOPHEN 325 MG TAB PO PRN (22:36)
[2024-01-05] MEDS: BENZOCAINE 20% SPRY 85 APPLN/85 GM CAN EXT PRN (00:30)
[2024-01-05] MEDS: miSOPROStoL 200 MCG TAB PR ONE (00:30)
[2024-01-05] MEDS: ONDANSETRON INJ 2 MG/ML 2 ML VIAL IV ONE (01:56)
[2024-01-05] MEDS: DIPHTHER/TETAN/PERTUS Vaccine (Tdap, Adol/Adult) 0.5mL IM ONE (02:02)
--- NOTE | 2024-01-05 06:03 | Obstetrical Progress Note ---
Date of Service January 05, 2024 Assessment & Plan (1) Gestational diabetes: (2) Group beta Strep positive: (3) Encounter for care and examination after delivery: Plan Encourage ambulation Encourage breast feeding Pain meds as needed Monitor BP and Hbg Anticipate DC on 01/06/24 Admission and Anticipated Discharge Date Admission Date: January 04, 2024 Supervising Physician Co-Signing Physician Notes Resident Physician Supervision Note: I interviewed and examined the patient. Discussed with Dr. Sparrow and agree with findings and plan as documented in the note. Any exceptions or clarifications are listed here: Doing well. Routine care. Documented By: Aileen Mcwilliams MD, FACOG Subjective Pt is 38 yo post- day 1 s/p at 39w6d. complicated by uncontrolled DM, LGA and GBS+. Ambulation:In room Voiding:voiding normally Passing gas: yes BM: no Diet tolerance:regular diet Lochia:bloody, small clots Feeding type: breast Current pain level: 0 /10 improved with ibuprofen Resting comfortably this morning in NAD. Reports she was nauseous last night, vomited after she ate post delivery. Feeling better this morning. Denies POWELL, CP, SOB, N/V/D, LE pain/swelling. Review of Systems Review of Systems: As per HPI Physical Exam Constitutional: WD/WN, vitals as above Respiratory: normal respiratory effort, lungs clear to auscultation Gastrointestinal (Abdomen): normal bowel sounds, soft, nontender, no hepatosplenomegaly Uterine fundus firm and at level of umbilicus Neurologic: PERRL, EOMI, accommodation nl, no face palsy, no dysarthria Moving all 4 extremities on command Psychiatric: A+Ox3, euthymic affect Results & Data Vital Signs (Past 12 Hours) Vital Signs Temp Pulse Pulse Resp BP BP Pulse Ox 01/05/24 03:44 36.9 C 59 L 16 97/61 L 96 01/05/24 00:50 36.8 C 75 16 116/76 95 01/05/24 00:35 18 01/05/24 00:32 86 104/65 01/05/24 00:23 81 99/69 L 01/05/24 00:08 88 115/69 01/05/24 00:05 18 01/04/24 23:54 91 H 117/56 L 01/04/24 23:38 70 99/58 L 01/04/24 23:25 18 01/04/24 23:23 77 109/60 01/04/24 23:10 18 01/04/24 23:08 73 110/56 L 01/04/24 22:55 18 01/04/24 22:54 82 112/64 01/04/24 22:43 75 90/58 L 01/04/24 22:40 18 01/04/24 22:25 36.7 C 18 01/04/24 22:25 90 109/65 01/04/24 22:22 90 100 01/04/24 22:17 91 H 99 01/04/24 22:12 135 H 85 L 01/04/24 22:07 106 H 100 01/04/24 22:02 82 100 01/04/24 21:57 71 100 01/04/24 21:54 86 102/72 01/04/24 21:52 81 98 01/04/24 21:47 85 97 01/04/24 21:42 80 97 01/04/24 21:38 91 H 90/60 L 01/04/24 21:37 92 H 96 01/04/24 21:32 82 96 01/04/24 21:27 85 96 01/04/24 21:24 90 88/58 L 01/04/24 21:22 77 97 01/04/24 21:17 82 97 01/04/24 21:12 82 98 01/04/24 21:10 18 01/04/24 21:10 36.7 C 18 01/04/24 21:09 85 97/59 L 01/04/24 21:07 90 99 01/04/24 21:02 76 100 01/04/24 21:00 18 01/04/24 20:57 81 98 01/04/24 20:54 67 95/53 L 01/04/24 20:52 83 100 01/04/24 20:47 76 100 01/04/24 20:42 71 100 01/04/24 20:40 75 96/65 L 01/04/24 20:37 83 100 01/04/24 20:32 78 99 01/04/24 20:30 18 01/04/24 20:27 116 H 100 01/04/24 20:26 81 89 L 01/04/24 20:24 74 89/49 L 01/04/24 20:22 95 H 100 01/04/24 20:17 92 H 100 01/04/24 20:12 86 100 01/04/24 20:08 81 84/52 L 01/04/24 20:07 68 100 01/04/24 20:02 75 100 01/04/24 20:00 18 01/04/24 19:57 76 98 01/04/24 19:54 90 91/56 L 01/04/24 19:52 79 98 01/04/24 19:47 81 99 01/04/24 19:42 72 99 01/04/24 19:39 90 92/53 L 01/04/24 19:37 71 100 01/04/24 19:32 85 97 01/04/24 19:27 82 98 01/04/24 19:26 18 01/04/24 19:26 36.7 C 18 01/04/24 19:23 73 94/55 L 01/04/24 19:22 74 99 01/04/24 19:18 78 91 01/04/24 19:17 78 97 01/04/24 19:12 78 99 01/04/24 19:08 69 96/57 L 01/04/24 19:07 72 100 01/04/24 19:02 74 99 01/04/24 19:00 16 01/04/24 19:00 16 01/04/24 18:57 82 100 01/04/24 18:53 66 94/56 L 01/04/24 18:52 68 98 01/04/24 18:47 75 98 01/04/24 18:42 72 98 01/04/24 18:39 67 95/56 L 01/04/24 18:37 86 99 01/04/24 18:32 80 99 01/04/24 18:30 20 01/04/24 18:30 20 01/04/24 18:27 80 99 01/04/24 18:24 64 98/58 L 01/04/24 18:22 74 100 01/04/24 18:17 61 100 01/04/24 18:12 78 100 01/04/24 18:08 63 96/58 L 01/04/24 18:07 66 100 01/04/24 18:04 75 97/59 L 01/04/24 18:02 66 100 O2 Del Method 01/05/24 03:44 Room Air 01/05/24 00:50 Room Air 01/05/24 00:35 01/05/24 00:32 01/05/24 00:23 01/05/24 00:08 01/05/24 00:05 01/04/24 23:54 01/04/24 23:38 01/04/24 23:25 01/04/24 23:23 01/04/24 23:10 01/04/24 23:08 01/04/24 22:55 01/04/24 22:54 01/04/24 22:43 01/04/24 22:40 01/04/24 22:25 01/04/24 22:25 01/04/24 22:22 01/04/24 22:17 01/04/24 22:12 01/04/24 22:07 01/04/24 22:02 01/04/24 21:57 01/04/24 21:54 01/04/24 21:52 01/04/24 21:47 01/04/24 21:42 01/04/24 21:38 01/04/24 21:37 01/04/24 21:32 01/04/24 21:27 01/04/24 21:24 01/04/24 21:22 01/04/24 21:17 01/04/24 21:12 01/04/24 21:10 01/04/24 21:10 01/04/24 21:09 01/04/24 21:07 01/04/24 21:02 01/04/24 21:00 01/04/24 20:57 01/04/24 20:54 01/04/24 20:52 01/04/24 20:47 01/04/24 20:42 01/04/24 20:40 01/04/24 20:37 01/04/24 20:32 01/04/24 20:30 01/04/24 20:27 01/04/24 20:26 01/04/24 20:24 01/04/24 20:22 01/04/24 20:17 01/04/24 20:12 01/04/24 20:08 01/04/24 20:07 01/04/24 20:02 01/04/24 20:00 01/04/24 19:57 01/04/24 19:54 01/04/24 19:52 01/04/24 19:47 01/04/24 19:42 01/04/24 19:39 01/04/24 19:37 01/04/24 19:32 01/04/24 19:27 01/04/24 19:26 01/04/24 19:26 01/04/24 19:23 01/04/24 19:22 01/04/24 19:18 01/04/24 19:17 01/04/24 19:12 01/04/24 19:08 01/04/24 19:07 01/04/24 19:02 01/04/24 19:00 01/04/24 19:00 01/04/24 18:57 01/04/24 18:53 01/04/24 18:52 01/04/24 18:47 01/04/24 18:42 01/04/24 18:39 01/04/24 18:37 01/04/24 18:32 01/04/24 18:30 01/04/24 18:30 01/04/24 18:27 01/04/24 18:24 01/04/24 18:22 01/04/24 18:17 01/04/24 18:12 01/04/24 18:08 01/04/24 18:07 01/04/24 18:04 01/04/24 18:02 Resident Activity Tracking Resident Involvement: Resident Care Provided Care Provided: Adult Hospital Medicine
[2024-01-05 06:43] LABS: Hemoglobin 11.6 g/dl (12.0-16.0)
[2024-01-05] MEDS: DOCUSATE SODIUM 100 MG CAP PO SCH (09:07)
[2024-01-05] MEDS: SERTRALINE HCL 100 MG TABLET PO SCH (09:07)
[2024-01-05] MEDS: PRENATAL VITAMIN 1 TAB PO SCH (09:07)
[2024-01-05] MEDS: buPROPion SR 150 MG TABCR PO SCH (09:07)
--- NOTE | 2024-01-05 11:49 | Anesthesia Procedure Note ---
Date of Service January 05, 2024 Anesthesia Post Epidural Note Vital Signs Vital Signs: Temp Pulse Resp BP Pulse Ox O2 Del Method 36.9 C 76 18 120/68 96 Room Air 01/05/24 03:44 01/05/24 09:10 01/05/24 09:10 01/05/24 09:10 01/05/24 03:44 01/05/24 09:10 Notes Mental Status: alert / awake / arousable Nausea / Vomiting: adequately controlled Pain: adequately controlled Airway Patency, RR, SpO2: stable & adequate BP & HR: stable & adequate Hydration State: stable & adequate Neuraxial Anesthesia: was administered and sensory block is resolving Anesthetic Complications: no major complications apparent and Pt Satisfied with anesthetic care Epidural: Removed without complications and With tip intact
[2024-01-05] MEDS ORDERED: bisacodyL 5 MG TABEC PO SCH (20:00)
[2024-01-06] MEDS ORDERED: bisacodyL 10 MG SUPP PR PRN
--- NOTE | 2024-01-06 05:46 | Obstetrical Progress Note ---
Date of Service January 06, 2024 Assessment & Plan (1) Gestational diabetes: (2) Group beta Strep positive: (3) Encounter for care and examination after delivery: Plan Encourage ambulation Encourage breast feeding Pain meds as needed Monitor BP and Hbg Anticipate DC on 01/06/24 Admission and Anticipated Discharge Date Admission Date: January 04, 2024 Supervising Physician Co-Signing Physician Notes Resident Physician Supervision Note: I interviewed and examined the patient. Discussed with Dr. Sparrow and agree with findings and plan as documented in the note. Any exceptions or clarifications are listed here: [None] Documented By: Mary Norman MD, FACOG Subjective Pt is 38 yo post- day 2 s/p at 39w6d. complicated by uncontrolled DM, LGA and GBS+. Ambulation:In room Voiding:voiding normally Passing gas: yes BM: yes Diet tolerance:regular diet Lochia: small amount bloody, no clots Feeding type: breast Current pain level: 0 /10 improved with ibuprofen Resting comfortably this morning in NAD. Pt reports baby had difficulty breathing yesterday and was taken to nursery. Denies POWELL, CP, SOB, N/V/D, LE pain/swelling. Review of Systems Review of Systems: As per HPI Physical Exam Constitutional: WD/WN, vitals as above Respiratory: normal respiratory effort, lungs clear to auscultation Cardiovascular: RRR, no murmur, no edema Extremities: + edema (trace) Gastrointestinal (Abdomen): normal bowel sounds, soft, nontender, no hepatosplenomegaly Uterine fundus is firm and 1 cm below umbilicus Neurologic: PERRL, EOMI, accommodation nl, no face palsy, no dysarthria Psychiatric: A+Ox3, euthymic affect Genitourinary: Manual OB Exam: + cervical dilation 3 cm, + cervical effacement (Soft and mid) 60% and + station -2 OB Exam Monitor Tracing: + external FHT monitor used and + category I Results & Data Vital Signs (Past 12 Hours) Vital Signs Temp Pulse Resp BP Pulse Ox O2 Del Method 01/06/24 00:20 36.8 C 62 16 104/69 96 Room Air 01/05/24 21:40 36.6 C 71 16 93/58 L Room Air Resident Activity Tracking Resident Involvement: Resident Care Provided Care Provided: Adult Hospital Medicine
[2024-01-06 10:31] VITALS: O2SAT 97
[2024-01-06 17:11] VITALS: BP 118/77; RESP 16; TEMP 97.9
[2024-01-06 17:55] VITALS: PULSE 62
== END 2024-01-06 18:40 | disposition home or self-care (01) | DRG 807 ==
LOC: 4S1 07:31 → 4E2 01-05 01:03